=== PATIENT | male | born 1960 | race Caucasian/White ===

== ENCOUNTER 2018-02-18 11:44 | Inpatient (IN) | payer BC ==
[2018-02-18] MEDS ORDERED: ONDANSETRON 4 MG INJ IV (13:00)
[2018-02-18] MEDS ORDERED: ACETAMINOPHEN 325 MG TAB PO (13:00)
[2018-02-18 13:44] LABS: ADD MAN DIFF? NO
[2018-02-18 13:49] LABS: BASOPHILS % 0.7 % (0.0-2.0); EOSINOPHILS # 0.3 10^3/ul (0.0-0.5); EOSINOPHILS % 5.1 % (0.0-7.0); HEMATOCRIT 31.3 % (42.0-52.0); HEMOGLOBIN 10.7 g/dl (14.0-18.0); LYMPHOCYTES # 0.9 10^3/ul (0.8-2.9); LYMPHOCYTES % 15.7 % (15.0-51.0); MEAN CORPUSCULAR HEMOGLOBIN 30.6 pg (29.0-33.0); MEAN CORPUSCULAR HGB CONC 34.2 g/dl (32.0-37.0); MEAN CORPUSCULAR VOLUME 89.4 fl (82.0-101.0); MEAN PLATELET VOLUME 11.2 fl (7.4-10.4); MONOCYTE # 0.4 10^3/ul (0.3-0.9); MONOCYTES % 6.3 % (0.0-11.0); NEUTROPHIL # 4.1 10^3/ul (1.6-7.5); NEUTROPHILS % 71.9 % (39.0-77.0); PLATELET COUNT 163 10^3/UL (140-415); RED CELL DISTRIBUTION WIDTH 13.2 % (11.5-14.5)
[2018-02-18 13:49] LABS: WHITE BLOOD COUNT 5.7 10^3/ul (4.8-10.8)
[2018-02-18 14:07] LABS: INR 1.06; PROTIME 13.9 Sec (11.9-14.9); PT RATIO 1.1
[2018-02-18 14:08] LABS: PARTIAL THROMBOPLASTIN TIME 33.4 Sec (25.0-35.0)
[2018-02-18 14:19] LABS: ANION GAP 18 (8-16); BLOOD UREA NITROGEN 46 mg/dl (7-20); CARBON DIOXIDE 21 mmol/L (21-31); CHLORIDE 110 mmol/L (97-110); CREATININE 4.82 mg/dl (0.61-1.24); GLUCOSE 317 mg/dl (70-220); SODIUM 144 mmol/L (135-144)
[2018-02-18 14:29] LABS: TROPONIN-I < 0.010 ng/ml (0.000-0.120)
[2018-02-18] MEDS ORDERED: HEPARIN 1000 UNITS/ML 10 ML INJ (15:55)
[2018-02-18] MEDS ORDERED: LIDOCAINE 1% (MDV) 20 ML INJ (15:55)
[2018-02-18] MEDS ORDERED: FENTAnyl 50 MCG/ML VIAL (15:55)
[2018-02-18] MEDS ORDERED: HEPARIN 1000 UNITS/NS (A-LINE) 1,000 ML (15:55)
[2018-02-18] MEDS ORDERED: MIDAZOLAM 1 MG/ML 2 ML INJ (15:55)
[2018-02-18] MEDS ORDERED: ALBUMIN HUMAN 25% 100 ML IV (16:30)
[2018-02-18] MEDS ORDERED: SODIUM CHLORIDE 0.9% 1L BAG IV (16:30)
[2018-02-18] MEDS ORDERED: CEFAZOLIN 1 GM/50 ML (PMX) 50 ML IVPB (16:36)
[2018-02-18] MEDS ORDERED: DEXTROSE 50% 50 ML SYRINGE IV ×2 (18:30)
[2018-02-18] MEDS ORDERED: ALBUTEROL HFA 8 GM INHALER INH (18:30)
[2018-02-18] MEDS ORDERED: GLUCOSE GEL 15 GRAM TUBE BUCCAL (18:30)
[2018-02-18] MEDS ORDERED: GLUCAGON 1 MG INJ IM (18:30)
[2018-02-18] MEDS ORDERED: GLUCOSE GEL 15 GRAM TUBE PO ×2 (18:30)
[2018-02-18 19:32] LABS: HEPATITIS B SURFACE ANTIGEN NEGATIVE (NEGATIVE)
[2018-02-18] MEDS: FAMOTIDINE 20 MG TAB PO (21:00)
[2018-02-18] MEDS: DOCUSATE SODIUM 100 MG CAP PO (21:00)
[2018-02-18] MEDS: CLOPIDOGREL 75 MG TAB PO (21:00)
[2018-02-18] MEDS: INSULIN ASPART [NOVOLOG] 3 ML PEN SC (21:07)
[2018-02-19 01:23] LABS: CREATINE KINASE 199 IU/L (23-200)
[2018-02-19 01:35] LABS: CK INDEX 0.9; CK-MB 1.79 ng/ml (0.0-2.4); TROPONIN-I < 0.012 ng/ml (0.000-0.120)
[2018-02-19] MEDS: ACCU-CHEK XX (01:43)
[2018-02-19] MEDS: ONDANSETRON 4 MG INJ IV ×2 (01:46→09:57)
[2018-02-19] MEDS: HEPARIN 1000 UNITS/ML 10 ML INJ CATHETER (05:06)
[2018-02-19 05:51] LABS: ADD MAN DIFF? NO; HAAIG REFLEX REFLEX FILED
[2018-02-19 05:55] LABS: BASOPHIL # 0.1 10^3/ul (0.0-0.1); BASOPHILS % 0.7 % (0.0-2.0); EOSINOPHILS # 0.2 10^3/ul (0.0-0.5); EOSINOPHILS % 2.8 % (0.0-7.0); HEMATOCRIT 30.9 % (42.0-52.0); HEMOGLOBIN 10.6 g/dl (14.0-18.0); LYMPHOCYTES # 0.9 10^3/ul (0.8-2.9); LYMPHOCYTES % 12.8 % (15.0-51.0); MEAN CORPUSCULAR HEMOGLOBIN 30.2 pg (29.0-33.0); MEAN CORPUSCULAR HGB CONC 34.3 g/dl (32.0-37.0); MEAN PLATELET VOLUME 11.6 fl (7.4-10.4); MONOCYTE # 0.2 10^3/ul (0.3-0.9); MONOCYTES % 3.1 % (0.0-11.0); NEUTROPHIL # 5.6 10^3/ul (1.6-7.5); PLATELET COUNT 148 10^3/UL (140-415); RED BLOOD COUNT 3.51 10^6/ul (4.70-6.10); RED CELL DISTRIBUTION WIDTH 13.1 % (11.5-14.5)
[2018-02-19 06:12] LABS: CHOL/HDL RATIO 3.5 RATIO; CREATINE KINASE 194 IU/L (23-200); HDL CHOLESTEROL 44 mg/dl (28-71); LDL CHOLESTEROL,CALCULATED 59 mg/dl; TRIGLYCERIDES 265 mg/dl (0-149)
[2018-02-19 06:12] LABS: CHOLESTEROL 156 mg/dl (100-200)
[2018-02-19 06:24] LABS: CK INDEX 0.7; TROPONIN-I 0.016 ng/ml (0.000-0.120)
[2018-02-19 06:39] LABS: MAGNESIUM 2.1 mg/dl (1.7-2.5)
[2018-02-19] MEDS: DOCUSATE SODIUM 100 MG CAP PO (06:47)
[2018-02-19] MEDS: FERROUS SULFATE (EC) 325 MG TAB PO ×2 (06:47→15:00)
[2018-02-19] MEDS: POTASSIUM CHLORIDE (SR) 20 MEQ TAB PO (06:49)
[2018-02-19] MEDS: TAMSULOSIN (SR) 0.4 MG CAP PO ×3 (06:49→15:00)
[2018-02-19] MEDS: ASPIRIN (EC) 81 MG TAB PO ×2 (06:49→15:00)
[2018-02-19] MEDS: PAROXETINE 10 MG TAB PO ×2 (06:50→15:00)
[2018-02-19] MEDS: GABAPENTIN 300 MG CAP PO ×2 (06:50→15:00)
[2018-02-19] MEDS: CLOPIDOGREL 75 MG TAB PO ×2 (06:50→15:00)
[2018-02-19 06:54] LABS: HEPATITIS B SURFACE ANTIGEN NEGATIVE (NEGATIVE)
[2018-02-19] MEDS: INSULIN ASPART [NOVOLOG] 3 ML PEN SC ×5 (07:01→20:30)
[2018-02-19 07:11] LABS: HEPATITIS B CORE ANTIBODY NEGATIVE (NEGATIVE); HEPATITIS C VIRAL ANTIBODY NEGATIVE (NEGATIVE); HIV 1&2 ANTIBODY NEGATIVE (NEGATIVE)
[2018-02-19] MEDS: LOSARTAN 50 MG TAB PO ×2 (08:20→09:00)
[2018-02-19 08:28] LABS: HEMOGLOBIN A1C 6.8 % (0-5.9)
[2018-02-19] MEDS: hydrALAzine 20 MG INJ IV (08:29)
[2018-02-19 09:46] LABS: ANION GAP 10 (8-16); BLOOD UREA NITROGEN 27 mg/dl (7-20); CARBON DIOXIDE 27 mmol/L (21-31); CHLORIDE 106 mmol/L (97-110); GLUCOSE 153 mg/dl (70-220); POTASSIUM 4.2 mmol/L (3.5-5.1); SODIUM 139 mmol/L (135-144)
[2018-02-19 13:01] LABS: CREATINE KINASE 162 IU/L (23-200)
[2018-02-19 13:15] LABS: CK INDEX 0.8; CK-MB 1.22 ng/ml (0.0-2.4); TROPONIN-I < 0.012 ng/ml (0.000-0.120)
[2018-02-19] MEDS: ONDANSETRON 4 MG TAB PO (14:43)
[2018-02-19] MEDS: PROPYLENE GLYCOL/PEG 15 ML OPH BOTH EYES (17:26)
[2018-02-20] MEDS: HEPARIN 1000 UNITS/ML 10 ML INJ CATHETER ×2 (00:31→20:19)
[2018-02-20] MEDS: PROPYLENE GLYCOL/PEG 15 ML OPH BOTH EYES ×5 (00:43→21:07)
[2018-02-20] MEDS: DOCUSATE SODIUM 100 MG CAP PO ×3 (00:43→21:06)
[2018-02-20] MEDS: FAMOTIDINE 20 MG TAB PO ×2 (00:44→21:07)
[2018-02-20] MEDS: ISOSORBIDE DINITRATE 10 MG TAB PO ×4 (00:44→21:06)
[2018-02-20] MEDS: LOSARTAN 50 MG TAB PO ×3 (00:44→21:06)
[2018-02-20] MEDS: METOPROLOL 25 MG TAB PO ×3 (00:45→21:07)
[2018-02-20] MEDS: ACCU-CHEK XX (02:00)
[2018-02-20] MEDS: hydrALAzine 20 MG INJ IV (04:47)
[2018-02-20] MEDS: ONDANSETRON 4 MG INJ IV ×2 (05:12→11:12)
[2018-02-20 06:37] LABS: ADD MAN DIFF? NO
[2018-02-20 06:46] LABS: WHITE BLOOD COUNT 6.7 10^3/ul (4.8-10.8)
[2018-02-20 06:46] LABS: BASOPHIL # 0.1 10^3/ul (0.0-0.1); EOSINOPHILS # 0.3 10^3/ul (0.0-0.5); EOSINOPHILS % 4.2 % (0.0-7.0); HEMATOCRIT 31.8 % (42.0-52.0); HEMOGLOBIN 10.8 g/dl (14.0-18.0); LYMPHOCYTES # 1.4 10^3/ul (0.8-2.9); LYMPHOCYTES % 20.3 % (15.0-51.0); MEAN CORPUSCULAR HEMOGLOBIN 29.8 pg (29.0-33.0); MEAN CORPUSCULAR VOLUME 87.6 fl (82.0-101.0); MEAN PLATELET VOLUME 11.6 fl (7.4-10.4); MONOCYTE # 0.6 10^3/ul (0.3-0.9); MONOCYTES % 8.5 % (0.0-11.0); NEUTROPHIL # 4.4 10^3/ul (1.6-7.5); NEUTROPHILS % 65.6 % (39.0-77.0); PLATELET COUNT 169 10^3/UL (140-415); RED BLOOD COUNT 3.63 10^6/ul (4.70-6.10); RED CELL DISTRIBUTION WIDTH 13.2 % (11.5-14.5)
[2018-02-20 07:11] LABS: ANION GAP 14 (8-16); BLOOD UREA NITROGEN 19 mg/dl (7-20); CALCIUM 9.4 mg/dl (8.4-10.2); CARBON DIOXIDE 27 mmol/L (21-31); CHLORIDE 103 mmol/L (97-110); CREATININE 2.94 mg/dl (0.61-1.24); GLUCOSE 189 mg/dl (70-220); POTASSIUM 4.5 mmol/L (3.5-5.1); SODIUM 139 mmol/L (135-144)
[2018-02-20] MEDS: INSULIN ASPART [NOVOLOG] 3 ML PEN SC ×5 (07:55→21:00)
[2018-02-20] MEDS: FERROUS SULFATE (EC) 325 MG TAB PO (09:01)
[2018-02-20] MEDS: ASPIRIN (EC) 81 MG TAB PO (09:01)
[2018-02-20] MEDS: GABAPENTIN 300 MG CAP PO (09:01)
[2018-02-20] MEDS: CLOPIDOGREL 75 MG TAB PO (09:02)
[2018-02-20] MEDS: TAMSULOSIN (SR) 0.4 MG CAP PO (09:02)
[2018-02-20] MEDS: POTASSIUM CHLORIDE (SR) 20 MEQ TAB PO (09:02)
[2018-02-20] MEDS: PAROXETINE 10 MG TAB PO (09:02)
[2018-02-20] MEDS: LEVETIRACETAM 500 MG TAB PO ×2 (13:21→21:07)
[2018-02-21] MEDS: ACCU-CHEK XX (02:00)
[2018-02-21] MEDS: traMADol 50 MG TAB PO (05:59)
[2018-02-21 06:16] LABS: ADD MAN DIFF? NO
[2018-02-21 06:25] LABS: BASOPHIL # 0.1 10^3/ul (0.0-0.1); BASOPHILS % 0.9 % (0.0-2.0); EOSINOPHILS # 0.3 10^3/ul (0.0-0.5); EOSINOPHILS % 4.8 % (0.0-7.0); HEMATOCRIT 31.8 % (42.0-52.0); HEMOGLOBIN 10.5 g/dl (14.0-18.0); LYMPHOCYTES # 1.6 10^3/ul (0.8-2.9); LYMPHOCYTES % 28.8 % (15.0-51.0); MEAN CORPUSCULAR HEMOGLOBIN 29.7 pg (29.0-33.0); MEAN CORPUSCULAR VOLUME 90.1 fl (82.0-101.0); MEAN PLATELET VOLUME 11.1 fl (7.4-10.4); MONOCYTE # 0.6 10^3/ul (0.3-0.9); MONOCYTES % 10.1 % (0.0-11.0); NEUTROPHIL # 3.1 10^3/ul (1.6-7.5); PLATELET COUNT 146 10^3/UL (140-415); RED BLOOD COUNT 3.53 10^6/ul (4.70-6.10); RED CELL DISTRIBUTION WIDTH 13.1 % (11.5-14.5)
[2018-02-21 06:25] LABS: WHITE BLOOD COUNT 5.6 10^3/ul (4.8-10.8)
[2018-02-21 06:44] LABS: ANION GAP 13 (8-16); BLOOD UREA NITROGEN 17 mg/dl (7-20); CALCIUM 9.5 mg/dl (8.4-10.2); CARBON DIOXIDE 30 mmol/L (21-31); CHLORIDE 102 mmol/L (97-110); CREATININE 3.03 mg/dl (0.61-1.24); GLUCOSE 165 mg/dl (70-220); POTASSIUM 4.1 mmol/L (3.5-5.1); SODIUM 141 mmol/L (135-144)
[2018-02-21] MEDS: INSULIN ASPART [NOVOLOG] 3 ML PEN SC ×4 (07:49→21:00)
[2018-02-21] MEDS: GABAPENTIN 300 MG CAP PO (08:53)
[2018-02-21] MEDS: ISOSORBIDE DINITRATE 10 MG TAB PO ×3 (08:53→21:47)
[2018-02-21] MEDS: LEVETIRACETAM 500 MG TAB PO ×2 (08:53→21:47)
[2018-02-21] MEDS: ASPIRIN (EC) 81 MG TAB PO (08:53)
[2018-02-21] MEDS: DOCUSATE SODIUM 100 MG CAP PO ×2 (08:53→21:48)
[2018-02-21] MEDS: POTASSIUM CHLORIDE (SR) 20 MEQ TAB PO (08:53)
[2018-02-21] MEDS: FERROUS SULFATE (EC) 325 MG TAB PO (08:53)
[2018-02-21] MEDS: PAROXETINE 10 MG TAB PO (08:53)
[2018-02-21] MEDS: METOPROLOL 25 MG TAB PO ×2 (08:54→21:47)
[2018-02-21] MEDS: TAMSULOSIN (SR) 0.4 MG CAP PO (08:54)
[2018-02-21] MEDS: CLOPIDOGREL 75 MG TAB PO (08:54)
[2018-02-21] MEDS: LOSARTAN 50 MG TAB PO ×2 (08:54→21:47)
[2018-02-21] MEDS: PROPYLENE GLYCOL/PEG 15 ML OPH BOTH EYES ×4 (08:58→21:48)
[2018-02-21] MEDS: FAMOTIDINE 20 MG TAB PO (21:47)
[2018-02-22] MEDS: ACCU-CHEK XX (02:00)
[2018-02-22 05:46] LABS: ADD MAN DIFF? NO
[2018-02-22 05:50] LABS: BASOPHIL # 0.1 10^3/ul (0.0-0.1); BASOPHILS % 0.9 % (0.0-2.0); EOSINOPHILS # 0.4 10^3/ul (0.0-0.5); EOSINOPHILS % 5.7 % (0.0-7.0); HEMATOCRIT 32.1 % (42.0-52.0); HEMOGLOBIN 10.8 g/dl (14.0-18.0); LYMPHOCYTES # 1.3 10^3/ul (0.8-2.9); LYMPHOCYTES % 18.7 % (15.0-51.0); MEAN CORPUSCULAR HEMOGLOBIN 30.2 pg (29.0-33.0); MEAN CORPUSCULAR HGB CONC 33.6 g/dl (32.0-37.0); MEAN CORPUSCULAR VOLUME 89.7 fl (82.0-101.0); MONOCYTE # 0.6 10^3/ul (0.3-0.9); MONOCYTES % 8.5 % (0.0-11.0); NEUTROPHIL # 4.5 10^3/ul (1.6-7.5); NEUTROPHILS % 65.9 % (39.0-77.0); PLATELET COUNT 147 10^3/UL (140-415); RED BLOOD COUNT 3.58 10^6/ul (4.70-6.10); RED CELL DISTRIBUTION WIDTH 12.7 % (11.5-14.5)
[2018-02-22 05:50] LABS: WHITE BLOOD COUNT 6.8 10^3/ul (4.8-10.8)
[2018-02-22 06:44] LABS: ANION GAP 13 (8-16); BLOOD UREA NITROGEN 35 mg/dl (7-20); CALCIUM 9.2 mg/dl (8.4-10.2); CARBON DIOXIDE 27 mmol/L (21-31); CHLORIDE 103 mmol/L (97-110); CREATININE 4.46 mg/dl (0.61-1.24); GLUCOSE 220 mg/dl (70-220); POTASSIUM 4.4 mmol/L (3.5-5.1); SODIUM 139 mmol/L (135-144)
[2018-02-22] MEDS: ASPIRIN (EC) 81 MG TAB PO (08:09)
[2018-02-22] MEDS: DOCUSATE SODIUM 100 MG CAP PO ×2 (08:09→20:55)
[2018-02-22] MEDS: CLOPIDOGREL 75 MG TAB PO (08:10)
[2018-02-22] MEDS: TAMSULOSIN (SR) 0.4 MG CAP PO (08:10)
[2018-02-22] MEDS: LEVETIRACETAM 500 MG TAB PO ×2 (08:10→20:55)
[2018-02-22] MEDS: FERROUS SULFATE (EC) 325 MG TAB PO (08:10)
[2018-02-22] MEDS: METOPROLOL 25 MG TAB PO ×2 (08:10→20:57)
[2018-02-22] MEDS: PAROXETINE 10 MG TAB PO (08:10)
[2018-02-22] MEDS: POTASSIUM CHLORIDE (SR) 20 MEQ TAB PO (08:10)
[2018-02-22] MEDS: ISOSORBIDE DINITRATE 10 MG TAB PO ×3 (08:11→20:56)
[2018-02-22] MEDS: LOSARTAN 50 MG TAB PO ×2 (08:11→20:56)
[2018-02-22] MEDS: PROPYLENE GLYCOL/PEG 15 ML OPH BOTH EYES ×4 (08:11→20:44)
[2018-02-22] MEDS: GABAPENTIN 300 MG CAP PO (08:11)
[2018-02-22] MEDS: INSULIN ASPART [NOVOLOG] 3 ML PEN SC ×4 (08:33→20:53)
[2018-02-22] MEDS: HEPARIN 1000 UNITS/ML 10 ML INJ CATHETER (15:30)
[2018-02-22] MEDS: FAMOTIDINE 20 MG TAB PO (20:55)
[2018-02-23] MEDS: ACCU-CHEK XX (02:00)
[2018-02-23] MEDS ORDERED: ACCU-CHEK XX (02:00)
[2018-02-23] MEDS: hydrALAzine 20 MG INJ IV (04:26)
[2018-02-23] MEDS: ONDANSETRON 4 MG INJ IV (05:12)
[2018-02-23] MEDS: INSULIN ASPART [NOVOLOG] 3 ML PEN SC ×2 (07:45→11:55)
[2018-02-23] MEDS: PROPYLENE GLYCOL/PEG 15 ML OPH BOTH EYES ×2 (08:42→11:56)
[2018-02-23] MEDS: POTASSIUM CHLORIDE (SR) 20 MEQ TAB PO (09:00)
[2018-02-23] MEDS: PAROXETINE 10 MG TAB PO (09:00)
[2018-02-23] MEDS: LOSARTAN 50 MG TAB PO (09:00)
[2018-02-23] MEDS: METOPROLOL 25 MG TAB PO (09:00)
[2018-02-23] MEDS: TAMSULOSIN (SR) 0.4 MG CAP PO (09:00)
[2018-02-23] MEDS: LINAGLIPTIN 5 MG TABLET PO (09:00)
[2018-02-23] MEDS: FERROUS SULFATE (EC) 325 MG TAB PO (09:00)
[2018-02-23] MEDS: ISOSORBIDE DINITRATE 10 MG TAB PO ×2 (09:00→11:31)
[2018-02-23] MEDS: GABAPENTIN 300 MG CAP PO (09:00)
[2018-02-23] MEDS: DOCUSATE SODIUM 100 MG CAP PO (09:00)
[2018-02-23 10:51] LABS: ADD MAN DIFF? NO
[2018-02-23 10:55] LABS: BASOPHIL # 0.1 10^3/ul (0.0-0.1); BASOPHILS % 0.9 % (0.0-2.0); EOSINOPHILS # 0.3 10^3/ul (0.0-0.5); EOSINOPHILS % 3.9 % (0.0-7.0); HEMATOCRIT 36.4 % (42.0-52.0); HEMOGLOBIN 12.2 g/dl (14.0-18.0); LYMPHOCYTES # 1.5 10^3/ul (0.8-2.9); LYMPHOCYTES % 17.6 % (15.0-51.0); MEAN CORPUSCULAR HEMOGLOBIN 29.6 pg (29.0-33.0); MEAN CORPUSCULAR HGB CONC 33.5 g/dl (32.0-37.0); MEAN CORPUSCULAR VOLUME 88.3 fl (82.0-101.0); MEAN PLATELET VOLUME 11.6 fl (7.4-10.4); MONOCYTE # 0.6 10^3/ul (0.3-0.9); MONOCYTES % 6.9 % (0.0-11.0); NEUTROPHILS % 70.3 % (39.0-77.0); PLATELET COUNT 180 10^3/UL (140-415); RED BLOOD COUNT 4.12 10^6/ul (4.70-6.10)
[2018-02-23 10:55] LABS: WHITE BLOOD COUNT 8.5 10^3/ul (4.8-10.8)
[2018-02-23] MEDS: CLOPIDOGREL 75 MG TAB PO (11:05)
[2018-02-23] MEDS: LEVETIRACETAM 500 MG TAB PO (11:05)
[2018-02-23] MEDS: ASPIRIN (EC) 81 MG TAB PO (11:05)
[2018-02-23 11:31] LABS: ANION GAP 19 (8-16); BLOOD UREA NITROGEN 34 mg/dl (7-20); CALCIUM 9.8 mg/dl (8.4-10.2); CARBON DIOXIDE 25 mmol/L (21-31); CHLORIDE 100 mmol/L (97-110); GLUCOSE 202 mg/dl (70-220); POTASSIUM 4.5 mmol/L (3.5-5.1); SODIUM 139 mmol/L (135-144)
[2018-02-24] MEDS ORDERED: ERGOCALCIFEROL 50,000 UNIT CAP PO (09:00)
== END 2018-02-23 15:44 | disposition home or self-care (01) | DRG 673 ==
LOC: E/R 11:44 → TEL 02-19 16:31 → MS3 12:43
PROVIDERS: Internal Medicine
PROC: 0JH63XZ Insertion of Tunneled Vascular Access Device into Chest Subcutaneous Tissue and Fascia, Percutaneous Approach (ICD-10-PCS; principal; 2018-02-18 15:30)
PROC: 02HV33Z Insertion of Infusion Device into Superior Vena Cava, Percutaneous Approach (ICD-10-PCS; 2018-02-18 15:30)
PROC: B518YZA Fluoroscopy of Superior Vena Cava using Other Contrast, Guidance (ICD-10-PCS; 2018-02-18 15:30)
PROC: 5A1D70Z Performance of Urinary Filtration, Intermittent, Less than 6 Hours Per Day (ICD-10-PCS; 2018-02-18 15:32)
DX: I12.0 Hypertensive chronic kidney disease with stage 5 chronic kidney disease or end stage renal disease (principal); N18.6 End stage renal disease; N17.9 Acute kidney failure, unspecified; I69.354 Hemiplegia and hemiparesis following cerebral infarction affecting left non-dominant side; D63.1 Anemia in chronic kidney disease; E11.22 Type 2 diabetes mellitus with diabetic chronic kidney disease; E11.21 Type 2 diabetes mellitus with diabetic nephropathy; E87.70 Fluid overload, unspecified; E78.5 Hyperlipidemia, unspecified; F32.9 Major depressive disorder, single episode, unspecified; G40.909 Epilepsy, unspecified, not intractable, without status epilepticus; I25.10 Atherosclerotic heart disease of native coronary artery without angina pectoris; J44.9 Chronic obstructive pulmonary disease, unspecified; R60.0 Localized edema; R07.9 Chest pain, unspecified; R94.31 Abnormal electrocardiogram [ECG] [EKG]; Z95.1 Presence of aortocoronary bypass graft; Z99.2 Dependence on renal dialysis; Z79.84 Long term (current) use of oral hypoglycemic drugs; Z79.02 Long term (current) use of antithrombotics/antiplatelets; Z79.82 Long term (current) use of aspirin
CPT/HCPCS: 36415; 71045; 80048; 80061; 82550; 82553; 82962; 83036; 83735; 84443; 84484; 85025; 85610; 85730; 86703; 86704; 86709; 86803; 87340; 90935; 93005; 93306; 93923; 93970; 97110; 97116; 97161; 97530; 99285-25

== ENCOUNTER 2018-05-08 17:16 | Emergency (ER) | payer BC ==
[2018-05-08 20:30] LABS: ADD MAN DIFF? NO
[2018-05-08 20:34] LABS: WHITE BLOOD COUNT 7.6 10^3/ul (4.8-10.8)
[2018-05-08 20:34] LABS: BASOPHIL # 0.1 10^3/ul (0.0-0.1); BASOPHILS % 0.7 % (0.0-2.0); EOSINOPHILS # 0.3 10^3/ul (0.0-0.5); EOSINOPHILS % 3.8 % (0.0-7.0); HEMATOCRIT 39.6 % (42.0-52.0); HEMOGLOBIN 13.4 g/dl (14.0-18.0); LYMPHOCYTES # 1.2 10^3/ul (0.8-2.9); LYMPHOCYTES % 15.3 % (15.0-51.0); MEAN CORPUSCULAR HGB CONC 33.8 g/dl (32.0-37.0); MEAN CORPUSCULAR VOLUME 91.7 fl (82.0-101.0); MEAN PLATELET VOLUME 11.9 fl (7.4-10.4); MONOCYTE # 0.6 10^3/ul (0.3-0.9); MONOCYTES % 7.5 % (0.0-11.0); NEUTROPHIL # 5.5 10^3/ul (1.6-7.5); NEUTROPHILS % 72.2 % (39.0-77.0); PLATELET COUNT 153 10^3/UL (140-415); RED BLOOD COUNT 4.32 10^6/ul (4.70-6.10); RED CELL DISTRIBUTION WIDTH 14.1 % (11.5-14.5)
[2018-05-08 20:51] LABS: ANION GAP 9 (5-13); BLOOD UREA NITROGEN 50 mg/dl (7-20); CALCIUM 9.7 mg/dl (8.4-10.2); CARBON DIOXIDE 22 mmol/L (21-31); CHLORIDE 109 mmol/L (97-110); Estimated GFR 13 mL/min (>60); GLUCOSE 82 mg/dl (70-220); POTASSIUM 4.1 mmol/L (3.5-5.1); SODIUM 140 mmol/L (135-144)
== END 2018-05-08 23:24 | disposition home or self-care (01) ==
LOC: E/R 17:16
DX: I12.0 Hypertensive chronic kidney disease with stage 5 chronic kidney disease or end stage renal disease (principal); R40.2252 Coma scale, best verbal response, oriented, at arrival to emergency department; R40.2362 Coma scale, best motor response, obeys commands, at arrival to emergency department; R40.2142 Coma scale, eyes open, spontaneous, at arrival to emergency department; N18.6 End stage renal disease; I25.10 Atherosclerotic heart disease of native coronary artery without angina pectoris; I25.2 Old myocardial infarction; E11.22 Type 2 diabetes mellitus with diabetic chronic kidney disease; Z95.1 Presence of aortocoronary bypass graft; Z79.82 Long term (current) use of aspirin; Z79.01 Long term (current) use of anticoagulants; Z79.84 Long term (current) use of oral hypoglycemic drugs
CPT/HCPCS: 71045; 80048; 82962; 84484; 85025; 93005; 99285-25

== ENCOUNTER 2018-12-17 10:08 | Inpatient (IN) | payer MEDICARE, OTHER ==
[2018-12-17] MEDS: OLANZAPINE 10 MG VIAL IM (10:39)
[2018-12-17 11:07] LABS: WHITE BLOOD COUNT 9.1 10^3/ul (4.8-10.8)
[2018-12-17 11:07] LABS: ABNORMAL IP MESSAGE 1; HEMATOCRIT 20.8 % (42.0-52.0); MEAN CORPUSCULAR HEMOGLOBIN 31.5 pg (29.0-33.0); MEAN CORPUSCULAR HGB CONC 30.8 g/dl (32.0-37.0); MEAN CORPUSCULAR VOLUME 102.5 fl (82.0-101.0); MEAN PLATELET VOLUME 10.4 fl (7.4-10.4); PLATELET COUNT 226 10^3/UL (140-415); POSITIVE DIFF @See below; RED BLOOD COUNT 2.03 10^6/ul (4.70-6.10)
[2018-12-17 11:18] LABS: ADD MAN DIFF? YES; HEMOGLOBIN 6.4 g/dl (14.0-18.0)
[2018-12-17 11:25] LABS: ALANINE AMINOTRANSFERASE 17 IU/L (13-69); ALBUMIN 3.1 g/dl (3.3-4.9); ALBUMIN/GLOBULIN RATIO 0.88; ALKALINE PHOSPHATASE 84 IU/L (42-121); ANION GAP 10 (5-13); ASPARTATE AMINO TRANSFERASE 38 IU/L (15-46); BLOOD UREA NITROGEN 48 mg/dl (7-20); CALCIUM 8.7 mg/dl (8.4-10.2); CARBON DIOXIDE 29 mmol/L (21-31); CHLORIDE 98 mmol/L (97-110); CREATININE 7.16 mg/dl (0.61-1.24); Estimated GFR 8 mL/min (>60); GLUCOSE 88 mg/dl (70-220); POTASSIUM 3.9 mmol/L (3.5-5.1); SODIUM 137 mmol/L (135-144); TOTAL PROTEIN 6.6 g/dl (6.1-8.1)
[2018-12-17] MEDS: SOD CHLORIDE 0.9% 1,000 ML IV ×3 (11:25→18:17)
[2018-12-17 11:31] LABS: ACETAMINOPHEN < 10.0 ug/ml (10.0-30.0); ETHANOL < 10.0 mg/dl (0-0); SALICYLATE < 1.0 mg/dl (5.0-30.0)
[2018-12-17 12:01] LABS: ANISOCYTOSIS 1+ (0-0); EOSINOPHILS % (M) 5 % (0-7); ERYTHROBLAST% (NRBC) (M) 1 % (0-0); HYPOCHROMASIA 1+ (0-0); LYMPHOCYTES #M 0.6 10^3/ul (0.8-2.9); LYMPHOCYTES % (M) 7 % (15-51); MONOCYTE #M 0.2 10^3/ul (0.3-0.9); MONOCYTES % (M) 3 % (0-11); PLATELET ESTIMATE NORMAL; POIKILOCYTOSIS 1+ (0-0); POLYCHROMASIA 1+ (0-0); REACTIVE LYMPHOCYTES #M 0.1 10^3/ul (0.0-0.0); REACTIVE LYMPHOCYTES% (M) 2 % (0-0); SEGMENTED NEUTROPHILS (M) % 83 % (39-77); SPHEROCYTES 1+ (0-0); TARGET CELLS 1+ (0-0)
[2018-12-17] MEDS ORDERED: ACETAMINOPHEN 325 MG TAB PO (13:30)
[2018-12-17] MEDS ORDERED: ONDANSETRON 4 MG INJ IV (13:30)
[2018-12-17] MEDS ORDERED: OLANZAPINE 10 MG VIAL IM (13:30)
[2018-12-17] MEDS ORDERED: NACL 0.9% 3 ML SYG IV (13:30)
[2018-12-17 13:51] LABS: HEMATOCRIT 20.7 % (42.0-52.0)
[2018-12-17 13:54] LABS: RETICULOCYTE RBC 2.05
[2018-12-17 13:54] LABS: RETICULOCYTE COUNT # 0.079 X10^6 (0.020-0.110); RETICULOCYTE COUNT % 3.8 % (0.5-1.5)
[2018-12-17 13:57] LABS: HEMOGLOBIN 6.5 g/dl (14.0-18.0)
[2018-12-17] MEDS ORDERED: PIPER-TAZO 3.375 GM IV (PMX) 100 ML IVPB (14:00)
[2018-12-17 14:17] LABS: IRON 38 ug/dl (35-150)
[2018-12-17] MEDS ORDERED: DEXTROSE 50% 50 ML SYRINGE IV (14:30)
[2018-12-17] MEDS ORDERED: GLUCAGON 1 MG INJ IM (14:30)
[2018-12-17] MEDS ORDERED: GLUCOSE GEL 15 GRAM TUBE PO ×2 (14:30)
[2018-12-17] MEDS ORDERED: GLUCOSE GEL 15 GRAM TUBE BUCCAL (14:30)
[2018-12-17 14:40] LABS: % IRON SATURATION 22 % SAT (22-52); TOTAL IRON BINDING CAPACITY 169 ug/dl (241-421)
[2018-12-17 14:48] LABS: ADD UMIC YES; UR ASCORBIC ACID NEGATIVE (NEGATIVE); UR BILIRUBIN (Dip) NEGATIVE (NEGATIVE); UR BLOOD (Dip) NEGATIVE (NEGATIVE); UR CLARITY CLEAR (CLEAR); UR COLOR YELLOW (YELLOW); UR GLUCOSE (Dip) 2+ mg/dL (NEGATIVE); UR KETONES (Dip) NEGATIVE (NEGATIVE); UR LEUKOCYTE ESTERASE (Dip) NEGATIVE Leu/ul (NEGATIVE); UR NITRITE (Dip) NEGATIVE (NEGATIVE); UR RBC 1 /HPF (0-5); UR SPECIFIC GRAVITY (Dip) 1.014 (1.003-1.030); UR TOTAL PROTEIN (Dip) 2+ mg/dl (NEGATIVE); UR UROBILINOGEN (Dip) NEGATIVE (NEGATIVE); UR WBC 7 /HPF (0-5)
[2018-12-17 14:51] LABS: IMMEDIATE SPIN CROSSMATCH 1 2
[2018-12-17 14:58] LABS: AMPHETAMINE/METHAMPHETAMINE Negative (NEGATIVE); BARBITURATES Negative (NEGATIVE); BENZODIAZEPINES Negative (NEGATIVE); CANNABINOIDS Negative (NEGATIVE); COCAINE Negative (NEGATIVE)
[2018-12-17 15:04] LABS: OPIATES Positive (NEGATIVE)
[2018-12-17] MEDS ORDERED: NORepinephrine 8MG/250 ML (PMX 250 ML IV (15:30)
[2018-12-17] MEDS: SOD CHLORIDE 0.9% 250 ML IV* (16:20)
[2018-12-17] MEDS: LIDOCAINE 1% (MPF) 5 ML VIAL SC (16:49)
[2018-12-17] MEDS ORDERED: HEPARIN 1000 UNITS/ML 10 ML INJ CATHETER (17:00)
[2018-12-17] MEDS ORDERED: SODIUM CHLORIDE 0.9% 1L BAG IV (17:00)
[2018-12-17] MEDS: LORAZEPAM 2 MG INJ IV (17:51)
[2018-12-17] MEDS: INSULIN ASPART [NOVOLOG] 3 ML PEN SC ×2 (18:00→21:00)
[2018-12-17] MEDS: ALBUTEROL/IPRATROPIUM (NEB) 3 ML AMP HHN (18:01)
[2018-12-17] MEDS: PIPER-TAZO 2.25 GM/NS 50 ML IVPB ×2 (18:17→21:03)
[2018-12-17] MEDS ORDERED: FAMOTIDINE 20 MG INJ IV (21:00)
[2018-12-17] MEDS: PANTOPRAZOLE 40 MG INJ IV (21:03)
[2018-12-17] MEDS: LEVETIRACETAM 500 MG (PMX) 100 ML IVPB (21:03)
[2018-12-17] MEDS: SCOPOLAMINE 1.5 MG PATCH TRANSDERM (21:47)
[2018-12-17] MEDS ORDERED: NALOXONE (0.4 MG/ML) INJ (22:25)
[2018-12-17] MEDS ORDERED: NALOXONE (0.4 MG/ML) INJ IV (22:30)
[2018-12-17] MEDS: NALOXONE (0.4 MG/ML) INJ IV (22:32)
[2018-12-17 22:56] LABS: AADO2 Arterial 426.8 mmHg (7.0-24.0); Arterial Base Excess -1.6 mmol/L (-3.0-3); Arterial Blood Gas Oxygen Sat 99.2 mmHG (95.0-98.0); Arterial COHb 0.3 % (0.0-3.0); Arterial Fraction of Oxyhgb 98.6 % (93.0-99.0); Arterial HCO3 22.1 mmol/L (22.0-26.0); Arterial MetHb 0.3 % (0.0-1.5); Arterial pCO2 33.2 mmhg (35-45); MODE MASK - NRB; Site Right Brachial
[2018-12-17] MEDS: hydrALAzine 20 MG INJ IV (23:19)
[2018-12-18] MEDS: ACCU-CHEK XX (02:00)
[2018-12-18] MEDS: LABETALOL HCL 20MG INJ IV ×2 (02:23→21:58)
[2018-12-18] MEDS: HALOPERIDOL 5 MG INJ IM ×2 (02:36→17:46)
[2018-12-18 04:50] LABS: ADD MAN DIFF? NO
[2018-12-18 05:01] LABS: WHITE BLOOD COUNT 11.2 10^3/ul (4.8-10.8)
[2018-12-18 05:01] LABS: BASOPHIL # 0.1 10^3/ul (0.0-0.1); BASOPHILS % 0.6 % (0.0-2.0); EOSINOPHILS # 0.3 10^3/ul (0.0-0.5); EOSINOPHILS % 2.6 % (0.0-7.0); HEMATOCRIT 27.3 % (42.0-52.0); HEMOGLOBIN 8.6 g/dl (14.0-18.0); LYMPHOCYTES # 0.9 10^3/ul (0.8-2.9); LYMPHOCYTES % 7.6 % (15.0-51.0); MEAN CORPUSCULAR HEMOGLOBIN 30.3 pg (29.0-33.0); MEAN CORPUSCULAR HGB CONC 31.5 g/dl (32.0-37.0); MEAN CORPUSCULAR VOLUME 96.1 fl (82.0-101.0); MEAN PLATELET VOLUME 11.1 fl (7.4-10.4); MONOCYTE # 0.6 10^3/ul (0.3-0.9); MONOCYTES % 5.6 % (0.0-11.0); NEUTROPHIL # 9.3 10^3/ul (1.6-7.5); NEUTROPHILS % 82.8 % (39.0-77.0); PLATELET COUNT 257 10^3/UL (140-415); RED BLOOD COUNT 2.84 10^6/ul (4.70-6.10); RED CELL DISTRIBUTION WIDTH 17.4 % (11.5-14.5)
[2018-12-18] MEDS: PIPER-TAZO 2.25 GM/NS 50 ML IVPB ×3 (05:34→21:47)
[2018-12-18] MEDS: PANTOPRAZOLE 40 MG INJ IV ×2 (06:00→17:27)
[2018-12-18 06:07] LABS: ALANINE AMINOTRANSFERASE 19 IU/L (13-69); ALBUMIN 3.1 g/dl (3.3-4.9); ALBUMIN/GLOBULIN RATIO 0.91; ALKALINE PHOSPHATASE 78 IU/L (42-121); ANION GAP 16 (5-13); ASPARTATE AMINO TRANSFERASE 43 IU/L (15-46); BILIRUBIN,INDIRECT 0.1 mg/dl (0-1.1); BILIRUBIN,TOTAL 0.1 mg/dl (0.2-1.3); BLOOD UREA NITROGEN 50 mg/dl (7-20); CALCIUM 8.7 mg/dl (8.4-10.2); CARBON DIOXIDE 24 mmol/L (21-31); CHLORIDE 102 mmol/L (97-110); CHOL/HDL RATIO 2.9 RATIO; CHOLESTEROL 107 mg/dl (100-200); CREATININE 7.62 mg/dl (0.61-1.24); Estimated GFR 7 mL/min (>60); GLUCOSE 88 mg/dl (70-220); HDL CHOLESTEROL 36 mg/dl (28-71); LDL CHOLESTEROL,CALCULATED 47 mg/dl; MAGNESIUM 3.1 mg/dl (1.7-2.5); POTASSIUM 4.5 mmol/L (3.5-5.1); SODIUM 142 mmol/L (135-144); TOTAL PROTEIN 6.5 g/dl (6.1-8.1); TRIGLYCERIDES 118 mg/dl (0-149)
[2018-12-18] MEDS: INSULIN ASPART [NOVOLOG] 3 ML PEN SC ×4 (07:35→21:00)
[2018-12-18 08:16] LABS: HEMOGLOBIN A1C 6.1 % (0-5.9)
[2018-12-18] MEDS: hydrALAzine 20 MG INJ IV (08:26)
[2018-12-18] MEDS: LEVETIRACETAM 500 MG (PMX) 100 ML IVPB ×2 (08:36→21:06)
[2018-12-18] MEDS: LORAZEPAM 2 MG INJ IV ×4 (08:43→22:52)
[2018-12-18] MEDS: IOHEXOL 300MG/ML 150 ML BTL (10:11)
[2018-12-18] MEDS: DEXTROSE 5%-0.45% NACL 1,000 ML IV (12:51)
[2018-12-18] MEDS: HEPARIN 1000 UNITS/ML 10 ML INJ CATHETER (19:02)
[2018-12-19] MEDS: HALOPERIDOL 5 MG INJ IM (00:10)
[2018-12-19] MEDS: LABETALOL HCL 20MG INJ IV ×2 (01:02→05:39)
[2018-12-19] MEDS: ACCU-CHEK XX (02:00)
[2018-12-19 04:40] LABS: ADD MAN DIFF? NO
[2018-12-19 04:42] LABS: ABNORMAL IP MESSAGE 1; BASOPHIL # 0.1 10^3/ul (0.0-0.1); BASOPHILS % 0.4 % (0.0-2.0); EOSINOPHILS # 0.2 10^3/ul (0.0-0.5); EOSINOPHILS % 1.1 % (0.0-7.0); HEMATOCRIT 27.1 % (42.0-52.0); HEMOGLOBIN 8.7 g/dl (14.0-18.0); LYMPHOCYTES # 0.4 10^3/ul (0.8-2.9); LYMPHOCYTES % 2.7 % (15.0-51.0); MEAN CORPUSCULAR HEMOGLOBIN 30.7 pg (29.0-33.0); MEAN CORPUSCULAR HGB CONC 32.1 g/dl (32.0-37.0); MEAN CORPUSCULAR VOLUME 95.8 fl (82.0-101.0); MEAN PLATELET VOLUME 10.2 fl (7.4-10.4); MONOCYTE # 0.7 10^3/ul (0.3-0.9); NEUTROPHIL # 12.6 10^3/ul (1.6-7.5); NEUTROPHILS % 90.4 % (39.0-77.0); PLATELET COUNT 249 10^3/UL (140-415); POSITIVE DIFF @See below; RED BLOOD COUNT 2.83 10^6/ul (4.70-6.10); RED CELL DISTRIBUTION WIDTH 17.8 % (11.5-14.5)
[2018-12-19 04:42] LABS: WHITE BLOOD COUNT 13.9 10^3/ul (4.8-10.8)
[2018-12-19 05:02] LABS: ANION GAP 11 (5-13); BLOOD UREA NITROGEN 21 mg/dl (7-20); CALCIUM 8.2 mg/dl (8.4-10.2); CARBON DIOXIDE 26 mmol/L (21-31); CHLORIDE 103 mmol/L (97-110); CREATININE 4.54 mg/dl (0.61-1.24); Estimated GFR 13 mL/min (>60); GLUCOSE 96 mg/dl (70-220); MAGNESIUM 2.4 mg/dl (1.7-2.5); POTASSIUM 3.9 mmol/L (3.5-5.1); SODIUM 140 mmol/L (135-144)
[2018-12-19 05:04] LABS: INR 1.16; PROTIME 14.9 Sec (11.9-14.9); PT RATIO 1.2
[2018-12-19] MEDS: PIPER-TAZO 2.25 GM/NS 50 ML IVPB ×3 (05:31→22:36)
[2018-12-19] MEDS: PANTOPRAZOLE 40 MG INJ IV ×2 (05:31→17:18)
[2018-12-19] MEDS: LORAZEPAM 2 MG INJ IV (05:41)
[2018-12-19] MEDS: ACETAMINOPHEN 325 MG TAB PO (05:48)
[2018-12-19] MEDS: INSULIN ASPART [NOVOLOG] 3 ML PEN SC ×4 (07:35→20:54)
[2018-12-19] MEDS: DEXTROSE 5%-0.45% NACL 1,000 ML IV (08:51)
[2018-12-19] MEDS: LEVETIRACETAM 500 MG (PMX) 100 ML IVPB ×2 (08:51→20:42)
[2018-12-19] MEDS ORDERED: ACETAMINOPHEN 1000MG/100ML IV 100 ML IVPB (09:30)
[2018-12-19] MEDS: niCARdipine 50 MG in SOD CHLORIDE 0.9% 480 ML IV ×2 (09:51→14:55)
[2018-12-19 14:19] LABS: HEPATITIS B SURFACE ANTIGEN NEGATIVE (NEGATIVE)
[2018-12-19] MEDS: LOSARTAN 50 MG TAB NGT (14:59)
[2018-12-19] MEDS: DOXAZOSIN 2 MG TAB NGT (14:59)
[2018-12-19] MEDS: ACETAMINOPHEN 650MG/20.3ML CUP PEG (16:31)
[2018-12-19] MEDS: FUROSEMIDE 40 MG INJ IV (16:32)
[2018-12-19] MEDS: ATORVASTATIN 40 MG TAB NGT (20:41)
[2018-12-19] MEDS: QUETIAPINE 25 MG TAB NGT (20:41)
[2018-12-19] MEDS: GABAPENTIN 100 MG CAP PO (20:42)
[2018-12-19] MEDS: SERTRALINE 50 MG TAB NGT (20:42)
[2018-12-19] MEDS: BACLOFEN 10 MG TAB GTB (20:42)
[2018-12-20] MEDS: ACCU-CHEK XX (01:11)
[2018-12-20] MEDS: DEXTROSE 5%-0.45% NACL 1,000 ML IV (01:11)
[2018-12-20 05:41] LABS: ADD MAN DIFF? NO
[2018-12-20 05:52] LABS: WHITE BLOOD COUNT 11.1 10^3/ul (4.8-10.8)
[2018-12-20 05:52] LABS: BASOPHIL # 0.1 10^3/ul (0.0-0.1); BASOPHILS % 0.5 % (0.0-2.0); EOSINOPHILS # 0.6 10^3/ul (0.0-0.5); EOSINOPHILS % 5.8 % (0.0-7.0); HEMATOCRIT 27.6 % (42.0-52.0); HEMOGLOBIN 8.6 g/dl (14.0-18.0); LYMPHOCYTES # 0.9 10^3/ul (0.8-2.9); MEAN CORPUSCULAR HEMOGLOBIN 30.2 pg (29.0-33.0); MEAN CORPUSCULAR HGB CONC 31.2 g/dl (32.0-37.0); MEAN CORPUSCULAR VOLUME 96.8 fl (82.0-101.0); MEAN PLATELET VOLUME 10.7 fl (7.4-10.4); MONOCYTE # 0.6 10^3/ul (0.3-0.9); NEUTROPHIL # 8.9 10^3/ul (1.6-7.5); NEUTROPHILS % 80.2 % (39.0-77.0); PLATELET COUNT 232 10^3/UL (140-415); RED BLOOD COUNT 2.85 10^6/ul (4.70-6.10); RED CELL DISTRIBUTION WIDTH 17.4 % (11.5-14.5)
[2018-12-20] MEDS: PANTOPRAZOLE 40 MG INJ IV ×2 (05:52→17:46)
[2018-12-20] MEDS: PIPER-TAZO 2.25 GM/NS 50 ML IVPB ×3 (05:53→22:26)
[2018-12-20 06:06] LABS: ANION GAP 8 (5-13); BLOOD UREA NITROGEN 29 mg/dl (7-20); CALCIUM 8.3 mg/dl (8.4-10.2); CARBON DIOXIDE 25 mmol/L (21-31); CHLORIDE 105 mmol/L (97-110); CREATININE 6.24 mg/dl (0.61-1.24); Estimated GFR 9 mL/min (>60); GLUCOSE 160 mg/dl (70-220); MAGNESIUM 2.5 mg/dl (1.7-2.5); PHOSPHORUS 3.9 mg/dl (2.5-4.9); POTASSIUM 3.9 mmol/L (3.5-5.1); SODIUM 138 mmol/L (135-144)
[2018-12-20] MEDS: INSULIN ASPART [NOVOLOG] 3 ML PEN SC ×4 (06:38→20:17)
[2018-12-20] MEDS: LEVETIRACETAM 500 MG (PMX) 100 ML IVPB ×2 (08:01→20:48)
[2018-12-20] MEDS: BACLOFEN 10 MG TAB GTB ×2 (10:05→20:15)
[2018-12-20] MEDS: DOXAZOSIN 2 MG TAB NGT (10:06)
[2018-12-20] MEDS: LOSARTAN 50 MG TAB NGT (10:07)
[2018-12-20] MEDS: HEPARIN 1000 UNITS/ML 10 ML INJ CATHETER (11:24)
[2018-12-20] MEDS: QUETIAPINE 25 MG TAB NGT (20:15)
[2018-12-20] MEDS: SERTRALINE 50 MG TAB NGT (20:15)
[2018-12-20] MEDS: GABAPENTIN 100 MG CAP PO (20:16)
[2018-12-20] MEDS: ATORVASTATIN 40 MG TAB NGT (20:16)
[2018-12-20] MEDS: ALBUTEROL/IPRATROPIUM (NEB) 3 ML AMP HHN (21:23)
[2018-12-21] MEDS: LORAZEPAM 2 MG INJ IV (03:55)
[2018-12-21] MEDS: PIPER-TAZO 2.25 GM/NS 50 ML IVPB (05:59)
[2018-12-21] MEDS: PANTOPRAZOLE 40 MG INJ IV ×2 (05:59→17:58)
[2018-12-21 06:10] LABS: ADD MAN DIFF? NO
[2018-12-21 06:14] LABS: WHITE BLOOD COUNT 8.7 10^3/ul (4.8-10.8)
[2018-12-21 06:14] LABS: BASOPHILS % 0.5 % (0.0-2.0); EOSINOPHILS # 0.6 10^3/ul (0.0-0.5); EOSINOPHILS % 6.7 % (0.0-7.0); HEMATOCRIT 26.8 % (42.0-52.0); HEMOGLOBIN 8.4 g/dl (14.0-18.0); LYMPHOCYTES # 0.7 10^3/ul (0.8-2.9); LYMPHOCYTES % 7.6 % (15.0-51.0); MEAN CORPUSCULAR HEMOGLOBIN 30.3 pg (29.0-33.0); MEAN CORPUSCULAR HGB CONC 31.3 g/dl (32.0-37.0); MEAN CORPUSCULAR VOLUME 96.8 fl (82.0-101.0); MEAN PLATELET VOLUME 10.8 fl (7.4-10.4); MONOCYTE # 0.6 10^3/ul (0.3-0.9); NEUTROPHIL # 6.7 10^3/ul (1.6-7.5); NEUTROPHILS % 77.7 % (39.0-77.0); PLATELET COUNT 236 10^3/UL (140-415); RED BLOOD COUNT 2.77 10^6/ul (4.70-6.10); RED CELL DISTRIBUTION WIDTH 16.8 % (11.5-14.5)
[2018-12-21 06:58] LABS: ALBUMIN 2.8 g/dl (3.3-4.9); ANION GAP 11 (5-13); BLOOD UREA NITROGEN 18 mg/dl (7-20); CALCIUM 8.5 mg/dl (8.4-10.2); CARBON DIOXIDE 29 mmol/L (21-31); CHLORIDE 101 mmol/L (97-110); CREATININE 4.31 mg/dl (0.61-1.24); GLUCOSE 141 mg/dl (70-220); MAGNESIUM 2.3 mg/dl (1.7-2.5); PHOSPHORUS 2.8 mg/dl (2.5-4.9); POTASSIUM 3.3 mmol/L (3.5-5.1); SODIUM 141 mmol/L (135-144)
[2018-12-21] MEDS: INSULIN ASPART [NOVOLOG] 3 ML PEN SC ×4 (08:00→23:51)
[2018-12-21] MEDS: LOSARTAN 50 MG TAB NGT (09:21)
[2018-12-21] MEDS: DOXAZOSIN 2 MG TAB NGT (09:22)
[2018-12-21] MEDS: BACLOFEN 10 MG TAB GTB ×2 (09:22→20:56)
[2018-12-21] MEDS: POTASSIUM CHLORIDE 20 MEQ POWDER FOR ORAL SOLN GTB (09:23)
[2018-12-21] MEDS: LEVETIRACETAM 500 MG (PMX) 100 ML IVPB ×2 (10:37→21:00)
[2018-12-21] MEDS: LACTOBACILLUS RHAMNOSUS CAP GTB ×2 (12:35→20:56)
[2018-12-21] MEDS: ONDANSETRON 4 MG INJ IV (14:58)
[2018-12-21] MEDS: hydrALAzine 20 MG INJ IV (15:15)
[2018-12-21] MEDS: PEG/ELECTROLYTES 4L BTL PO (17:19)
[2018-12-21] MEDS: SERTRALINE 50 MG TAB NGT (20:55)
[2018-12-21] MEDS: QUETIAPINE 25 MG TAB NGT (20:56)
[2018-12-21] MEDS: GABAPENTIN 100 MG CAP PO (20:56)
[2018-12-21] MEDS: ATORVASTATIN 40 MG TAB NGT (20:56)
[2018-12-22] MEDS: ACCU-CHEK XX (02:19)
[2018-12-22] MEDS: PANTOPRAZOLE 40 MG INJ IV ×2 (05:31→18:24)
[2018-12-22] MEDS: INSULIN ASPART [NOVOLOG] 3 ML PEN SC ×3 (05:31→18:00)
[2018-12-22 05:40] LABS: ADD MAN DIFF? NO
[2018-12-22 05:44] LABS: BASOPHIL # 0.1 10^3/ul (0.0-0.1); BASOPHILS % 0.9 % (0.0-2.0); EOSINOPHILS # 0.7 10^3/ul (0.0-0.5); EOSINOPHILS % 10.5 % (0.0-7.0); HEMATOCRIT 26.4 % (42.0-52.0); HEMOGLOBIN 8.3 g/dl (14.0-18.0); LYMPHOCYTES % 14.3 % (15.0-51.0); MEAN CORPUSCULAR HEMOGLOBIN 31.3 pg (29.0-33.0); MEAN CORPUSCULAR HGB CONC 31.4 g/dl (32.0-37.0); MEAN CORPUSCULAR VOLUME 99.6 fl (82.0-101.0); MEAN PLATELET VOLUME 10.7 fl (7.4-10.4); MONOCYTE # 0.4 10^3/ul (0.3-0.9); MONOCYTES % 6.3 % (0.0-11.0); NEUTROPHIL # 4.8 10^3/ul (1.6-7.5); NEUTROPHILS % 67.7 % (39.0-77.0); PLATELET COUNT 224 10^3/UL (140-415); RED BLOOD COUNT 2.65 10^6/ul (4.70-6.10); RED CELL DISTRIBUTION WIDTH 16.4 % (11.5-14.5)
[2018-12-22 06:35] LABS: ALBUMIN 2.8 g/dl (3.3-4.9); ANION GAP 10 (5-13); BLOOD UREA NITROGEN 26 mg/dl (7-20); CALCIUM 8.8 mg/dl (8.4-10.2); CARBON DIOXIDE 29 mmol/L (21-31); CHLORIDE 103 mmol/L (97-110); GLUCOSE 106 mg/dl (70-220); MAGNESIUM 2.5 mg/dl (1.7-2.5); PHOSPHORUS 4.1 mg/dl (2.5-4.9); POTASSIUM 4.4 mmol/L (3.5-5.1); SODIUM 142 mmol/L (135-144)
[2018-12-22] MEDS: PEG/ELECTROLYTES 4L BTL PO (08:44)
[2018-12-22] MEDS: LEVETIRACETAM 500 MG (PMX) 100 ML IVPB ×2 (08:47→20:15)
[2018-12-22] MEDS: BACLOFEN 10 MG TAB GTB ×2 (08:48→20:15)
[2018-12-22] MEDS: LOSARTAN 50 MG TAB NGT (08:48)
[2018-12-22] MEDS: NIFEdipine (XL) 30 MG TAB PO (08:49)
[2018-12-22] MEDS: DOXAZOSIN 2 MG TAB NGT (08:49)
[2018-12-22] MEDS: LACTOBACILLUS RHAMNOSUS CAP GTB ×3 (09:00→20:16)
[2018-12-22] MEDS: MIDAZOLAM 1 MG/ML 2 ML INJ (15:46)
[2018-12-22] MEDS: PROPOFOL 20 ML (15:46)
[2018-12-22] MEDS: LIDOCAINE 1% (MDV) 20 ML INJ (15:46)
[2018-12-22] MEDS ORDERED: PHENYLephrine (100 MCG/ML) 10ML SYG (15:46)
[2018-12-22] MEDS ORDERED: PROPOFOL 200 MG INJ (15:46)
[2018-12-22] MEDS: EPHEDrine 25 MG/5 ML SYG (16:23)
[2018-12-22] MEDS: ATORVASTATIN 40 MG TAB NGT (20:15)
[2018-12-22] MEDS: GABAPENTIN 100 MG CAP PO (20:15)
[2018-12-22] MEDS: SERTRALINE 50 MG TAB NGT (20:15)
[2018-12-22] MEDS: QUETIAPINE 25 MG TAB NGT (20:21)
[2018-12-22] MEDS: ALBUMIN HUMAN 25% 100 ML IV (21:18)
[2018-12-22] MEDS: EPOETIN ALFA-EPBX (ESRD) 10,000 UNIT/ML VIAL SC (21:45)
[2018-12-22] MEDS: HEPARIN 1000 UNITS/ML 10 ML INJ CATHETER (22:47)
[2018-12-23] MEDS: ACCU-CHEK XX (02:00)
[2018-12-23] MEDS: INSULIN ASPART [NOVOLOG] 3 ML PEN SC ×5 (05:30→17:59)
[2018-12-23] MEDS: PANTOPRAZOLE 40 MG INJ IV (05:30)
[2018-12-23 06:19] LABS: ADD MAN DIFF? NO
[2018-12-23 06:25] LABS: WHITE BLOOD COUNT 6.6 10^3/ul (4.8-10.8)
[2018-12-23 06:25] LABS: BASOPHIL # 0.1 10^3/ul (0.0-0.1); BASOPHILS % 0.9 % (0.0-2.0); EOSINOPHILS # 0.8 10^3/ul (0.0-0.5); EOSINOPHILS % 11.6 % (0.0-7.0); HEMATOCRIT 27.4 % (42.0-52.0); HEMOGLOBIN 8.9 g/dl (14.0-18.0); LYMPHOCYTES # 1.3 10^3/ul (0.8-2.9); LYMPHOCYTES % 19.3 % (15.0-51.0); MEAN CORPUSCULAR HEMOGLOBIN 30.7 pg (29.0-33.0); MEAN CORPUSCULAR HGB CONC 32.5 g/dl (32.0-37.0); MEAN CORPUSCULAR VOLUME 94.5 fl (82.0-101.0); MEAN PLATELET VOLUME 10.6 fl (7.4-10.4); MONOCYTE # 0.5 10^3/ul (0.3-0.9); MONOCYTES % 7.4 % (0.0-11.0); NEUTROPHILS % 60.2 % (39.0-77.0); PLATELET COUNT 250 10^3/UL (140-415); RED CELL DISTRIBUTION WIDTH 16.1 % (11.5-14.5)
[2018-12-23 07:23] LABS: ALBUMIN 2.9 g/dl (3.3-4.9); ANION GAP 8 (5-13); BLOOD UREA NITROGEN 19 mg/dl (7-20); CALCIUM 8.6 mg/dl (8.4-10.2); CARBON DIOXIDE 29 mmol/L (21-31); CHLORIDE 103 mmol/L (97-110); GLUCOSE 101 mg/dl (70-220); MAGNESIUM 2.4 mg/dl (1.7-2.5); PHOSPHORUS 3.3 mg/dl (2.5-4.9); POTASSIUM 3.9 mmol/L (3.5-5.1); SODIUM 140 mmol/L (135-144)
[2018-12-23] MEDS: LEVETIRACETAM 500 MG (PMX) 100 ML IVPB (08:22)
[2018-12-23] MEDS: LACTOBACILLUS RHAMNOSUS CAP GTB ×3 (08:23→21:00)
[2018-12-23] MEDS: DOXAZOSIN 2 MG TAB NGT (08:26)
[2018-12-23] MEDS: QUETIAPINE 25 MG TAB NGT ×2 (08:26→21:00)
[2018-12-23] MEDS: NIFEdipine (XL) 30 MG TAB PO (08:27)
[2018-12-23] MEDS: BACLOFEN 10 MG TAB GTB ×2 (08:27→21:01)
[2018-12-23] MEDS: LOSARTAN 50 MG TAB NGT (08:27)
[2018-12-23] MEDS: MULTIVIT/CA CARB/B CMPLX/FA TAB GTB (11:48)
[2018-12-23] MEDS: ALBUTEROL 0.083% (NEB) 2.5 MG/3 ML AMP HHN ×2 (14:36→20:03)
[2018-12-23] MEDS: LANSOPRAZOLE 30 MG CAP GTB (17:28)
[2018-12-23] MEDS: LEVETIRACETAM (100 MG/ML) 5ML CUP GTB (21:00)
[2018-12-23] MEDS ORDERED: LEVETIRACETAM (100 MG/ML) 5ML CUP GTB (21:00)
[2018-12-23] MEDS: SERTRALINE 50 MG TAB NGT (21:01)
[2018-12-23] MEDS: ATORVASTATIN 40 MG TAB NGT (21:01)
[2018-12-23] MEDS: GABAPENTIN 100 MG CAP PO (21:01)
[2018-12-24] MEDS: ACCU-CHEK XX (00:36)
[2018-12-24] MEDS: INSULIN ASPART [NOVOLOG] 3 ML PEN SC ×4 (05:47→17:57)
[2018-12-24] MEDS: LANSOPRAZOLE 30 MG CAP GTB ×2 (05:59→17:57)
[2018-12-24 06:05] LABS: ADD MAN DIFF? NO
[2018-12-24 06:14] LABS: WHITE BLOOD COUNT 7.7 10^3/ul (4.8-10.8)
[2018-12-24 06:14] LABS: BASOPHIL # 0.1 10^3/ul (0.0-0.1); BASOPHILS % 0.8 % (0.0-2.0); EOSINOPHILS # 0.6 10^3/ul (0.0-0.5); EOSINOPHILS % 8.1 % (0.0-7.0); HEMATOCRIT 27.6 % (42.0-52.0); HEMOGLOBIN 8.9 g/dl (14.0-18.0); LYMPHOCYTES # 1.1 10^3/ul (0.8-2.9); LYMPHOCYTES % 14.8 % (15.0-51.0); MEAN CORPUSCULAR HEMOGLOBIN 30.3 pg (29.0-33.0); MEAN CORPUSCULAR HGB CONC 32.2 g/dl (32.0-37.0); MEAN CORPUSCULAR VOLUME 93.9 fl (82.0-101.0); MEAN PLATELET VOLUME 10.3 fl (7.4-10.4); MONOCYTE # 0.6 10^3/ul (0.3-0.9); MONOCYTES % 7.9 % (0.0-11.0); NEUTROPHIL # 5.1 10^3/ul (1.6-7.5); NEUTROPHILS % 66.6 % (39.0-77.0); PLATELET COUNT 250 10^3/UL (140-415); RED BLOOD COUNT 2.94 10^6/ul (4.70-6.10); RED CELL DISTRIBUTION WIDTH 15.8 % (11.5-14.5)
[2018-12-24 06:37] LABS: ALBUMIN 2.9 g/dl (3.3-4.9); ANION GAP 11 (5-13); BLOOD UREA NITROGEN 26 mg/dl (7-20); CALCIUM 8.9 mg/dl (8.4-10.2); CARBON DIOXIDE 27 mmol/L (21-31); CHLORIDE 101 mmol/L (97-110); CREATININE 6.08 mg/dl (0.61-1.24); GLUCOSE 159 mg/dl (70-220); MAGNESIUM 2.4 mg/dl (1.7-2.5); PHOSPHORUS 3.5 mg/dl (2.5-4.9); POTASSIUM 3.8 mmol/L (3.5-5.1); SODIUM 139 mmol/L (135-144)
[2018-12-24] MEDS: ALBUTEROL 0.083% (NEB) 2.5 MG/3 ML AMP HHN ×2 (08:33→15:06)
[2018-12-24] MEDS: HEPARIN 1000 UNITS/ML 10 ML INJ CATHETER (11:04)
[2018-12-24] MEDS: LEVETIRACETAM (100 MG/ML) 5ML CUP GTB ×2 (12:14→22:46)
[2018-12-24] MEDS: ASPIRIN 81 MG TAB PO (12:14)
[2018-12-24] MEDS: MULTIVIT/CA CARB/B CMPLX/FA TAB GTB (12:15)
[2018-12-24] MEDS: LACTOBACILLUS RHAMNOSUS CAP GTB ×3 (12:15→22:47)
[2018-12-24] MEDS: BACLOFEN 10 MG TAB GTB ×2 (12:15→22:49)
[2018-12-24] MEDS: NIFEdipine (XL) 30 MG TAB PO (12:16)
[2018-12-24] MEDS: LOSARTAN 50 MG TAB NGT (12:16)
[2018-12-24] MEDS: DOXAZOSIN 2 MG TAB NGT (12:16)
[2018-12-24] MEDS: QUETIAPINE 25 MG TAB NGT ×2 (12:17→22:48)
[2018-12-24] MEDS: EPOETIN ALFA-EPBX (ESRD) 10,000 UNIT/ML VIAL SC (17:49)
[2018-12-24] MEDS: GABAPENTIN 100 MG CAP PO (22:46)
[2018-12-24] MEDS: SERTRALINE 50 MG TAB NGT (22:48)
[2018-12-24] MEDS: ATORVASTATIN 40 MG TAB NGT (22:48)
[2018-12-25] MEDS: INSULIN ASPART [NOVOLOG] 3 ML PEN SC ×4 (00:55→16:45)
[2018-12-25] MEDS: LANSOPRAZOLE 30 MG CAP GTB ×2 (06:13→17:08)
[2018-12-25 06:15] LABS: ADD MAN DIFF? NO
[2018-12-25 06:17] LABS: WHITE BLOOD COUNT 6.4 10^3/ul (4.8-10.8)
[2018-12-25 06:17] LABS: BASOPHIL # 0.1 10^3/ul (0.0-0.1); BASOPHILS % 0.8 % (0.0-2.0); EOSINOPHILS # 0.4 10^3/ul (0.0-0.5); EOSINOPHILS % 6.4 % (0.0-7.0); HEMATOCRIT 28.3 % (42.0-52.0); HEMOGLOBIN 8.9 g/dl (14.0-18.0); LYMPHOCYTES # 1.3 10^3/ul (0.8-2.9); LYMPHOCYTES % 20.3 % (15.0-51.0); MEAN CORPUSCULAR HEMOGLOBIN 29.7 pg (29.0-33.0); MEAN CORPUSCULAR HGB CONC 31.4 g/dl (32.0-37.0); MEAN CORPUSCULAR VOLUME 94.3 fl (82.0-101.0); MEAN PLATELET VOLUME 10.4 fl (7.4-10.4); MONOCYTE # 0.6 10^3/ul (0.3-0.9); MONOCYTES % 8.8 % (0.0-11.0); NEUTROPHIL # 3.9 10^3/ul (1.6-7.5); PLATELET COUNT 238 10^3/UL (140-415)
[2018-12-25 06:46] LABS: ALBUMIN 2.9 g/dl (3.3-4.9); ANION GAP 8 (5-13); BLOOD UREA NITROGEN 18 mg/dl (7-20); CALCIUM 8.8 mg/dl (8.4-10.2); CARBON DIOXIDE 31 mmol/L (21-31); CHLORIDE 101 mmol/L (97-110); CREATININE 4.51 mg/dl (0.61-1.24); GLUCOSE 163 mg/dl (70-220); MAGNESIUM 2.3 mg/dl (1.7-2.5); PHOSPHORUS 3.1 mg/dl (2.5-4.9); POTASSIUM 3.9 mmol/L (3.5-5.1); SODIUM 140 mmol/L (135-144)
[2018-12-25] MEDS: ALBUTEROL 0.083% (NEB) 2.5 MG/3 ML AMP HHN ×3 (07:35→20:21)
[2018-12-25] MEDS: MULTIVIT/CA CARB/B CMPLX/FA TAB GTB (08:02)
[2018-12-25] MEDS: ASPIRIN 81 MG TAB PO (08:02)
[2018-12-25] MEDS: BACLOFEN 10 MG TAB GTB ×2 (08:02→21:50)
[2018-12-25] MEDS: QUETIAPINE 25 MG TAB NGT (08:03)
[2018-12-25] MEDS: LEVETIRACETAM (100 MG/ML) 5ML CUP GTB ×2 (08:07→21:48)
[2018-12-25] MEDS: LACTOBACILLUS RHAMNOSUS CAP GTB ×3 (08:08→21:48)
[2018-12-25] MEDS: DOXAZOSIN 2 MG TAB NGT (08:08)
[2018-12-25] MEDS: LOSARTAN 50 MG TAB NGT (08:09)
[2018-12-25] MEDS: NIFEdipine (XL) 30 MG TAB PO (08:09)
[2018-12-25] MEDS: ATORVASTATIN 40 MG TAB NGT (21:48)
[2018-12-25] MEDS: GABAPENTIN 100 MG CAP PO (21:48)
[2018-12-25] MEDS: SERTRALINE 50 MG TAB NGT (21:49)
[2018-12-25] MEDS: QUETIAPINE 25 MG TAB GTB (21:50)
[2018-12-26] MEDS: LANSOPRAZOLE 30 MG CAP GTB ×2 (06:03→17:04)
[2018-12-26] MEDS: INSULIN ASPART [NOVOLOG] 3 ML PEN SC ×4 (06:06→16:58)
[2018-12-26 06:22] LABS: ADD MAN DIFF? NO
[2018-12-26 06:31] LABS: BASOPHIL # 0.1 10^3/ul (0.0-0.1); BASOPHILS % 0.6 % (0.0-2.0); EOSINOPHILS # 0.4 10^3/ul (0.0-0.5); EOSINOPHILS % 4.3 % (0.0-7.0); HEMATOCRIT 28.9 % (42.0-52.0); HEMOGLOBIN 9.3 g/dl (14.0-18.0); LYMPHOCYTES # 1.4 10^3/ul (0.8-2.9); LYMPHOCYTES % 14.3 % (15.0-51.0); MEAN CORPUSCULAR HEMOGLOBIN 30.2 pg (29.0-33.0); MEAN CORPUSCULAR HGB CONC 32.2 g/dl (32.0-37.0); MEAN CORPUSCULAR VOLUME 93.8 fl (82.0-101.0); MEAN PLATELET VOLUME 10.4 fl (7.4-10.4); MONOCYTE # 0.7 10^3/ul (0.3-0.9); MONOCYTES % 7.8 % (0.0-11.0); NEUTROPHIL # 6.7 10^3/ul (1.6-7.5); NEUTROPHILS % 70.9 % (39.0-77.0); PLATELET COUNT 231 10^3/UL (140-415); RED BLOOD COUNT 3.08 10^6/ul (4.70-6.10); RED CELL DISTRIBUTION WIDTH 16.2 % (11.5-14.5)
[2018-12-26 06:31] LABS: WHITE BLOOD COUNT 9.5 10^3/ul (4.8-10.8)
[2018-12-26 06:52] LABS: ALBUMIN 3.2 g/dl (3.3-4.9); ANION GAP 7 (5-13); BLOOD UREA NITROGEN 29 mg/dl (7-20); CALCIUM 9.2 mg/dl (8.4-10.2); CARBON DIOXIDE 32 mmol/L (21-31); CHLORIDE 100 mmol/L (97-110); CREATININE 6.06 mg/dl (0.61-1.24); GLUCOSE 214 mg/dl (70-220); MAGNESIUM 2.5 mg/dl (1.7-2.5); SODIUM 139 mmol/L (135-144)
[2018-12-26] MEDS ORDERED: ETOMIDATE 20 MG INJ (07:10)
[2018-12-26] MEDS ORDERED: SUCCINYLCHOLINE CHLORIDE 100 MG/5 ML SYG IV (07:10)
[2018-12-26] MEDS: ALBUTEROL 0.083% (NEB) 2.5 MG/3 ML AMP HHN ×3 (08:15→19:21)
[2018-12-26] MEDS: QUETIAPINE 25 MG TAB GTB ×3 (08:22→21:00)
[2018-12-26] MEDS: MULTIVIT/CA CARB/B CMPLX/FA TAB GTB (08:22)
[2018-12-26] MEDS: BACLOFEN 10 MG TAB GTB ×2 (08:23→21:00)
[2018-12-26] MEDS: LEVETIRACETAM (100 MG/ML) 5ML CUP GTB ×2 (08:23→21:00)
[2018-12-26] MEDS: LACTOBACILLUS RHAMNOSUS CAP GTB ×3 (08:23→21:00)
[2018-12-26] MEDS: ASPIRIN 81 MG TAB PO (08:23)
[2018-12-26] MEDS: CLOPIDOGREL 75 MG TAB GTB (08:23)
[2018-12-26] MEDS: LOSARTAN 50 MG TAB NGT (08:23)
[2018-12-26] MEDS: DOXAZOSIN 2 MG TAB NGT (08:24)
[2018-12-26] MEDS: NIFEdipine (XL) 30 MG TAB PO (08:24)
[2018-12-26] MEDS: ONDANSETRON 4 MG INJ IV (18:53)
[2018-12-26] MEDS: ATORVASTATIN 40 MG TAB NGT (21:00)
[2018-12-26] MEDS: GABAPENTIN 100 MG CAP PO (21:00)
[2018-12-26] MEDS: SERTRALINE 50 MG TAB NGT (21:00)
[2018-12-26 21:46] LABS: LACTIC ACID 1.7 mmol/L (0.5-2.0)
[2018-12-26 23:35] LABS: AADO2 Arterial 579.9 mmHg (7.0-24.0); Arterial Blood Gas Oxygen Sat 95.5 mmHG (95.0-98.0); Arterial COHb 0 % (0.0-3.0); Arterial Fraction of Oxyhgb 95.3 % (93.0-99.0); Arterial HCO3 27.4 mmol/L (22.0-26.0); Arterial MetHb 0.2 % (0.0-1.5); Arterial pCO2 46.3 mmhg (35-45); MODE MASK - NRB; Site LB
[2018-12-27] MEDS: SOD CHLORIDE 0.9% 1,000 ML IV ×3 (00:07→11:33)
[2018-12-27] MEDS: PROPOFOL 100 ML IV ×3 (00:07→11:39)
[2018-12-27 00:15] LABS: ADD MAN DIFF? NO
[2018-12-27 00:17] LABS: ABNORMAL IP MESSAGE 1; BASOPHILS % 0.3 % (0.0-2.0); EOSINOPHILS % 0.4 % (0.0-7.0); HEMATOCRIT 27.6 % (42.0-52.0); HEMOGLOBIN 8.6 g/dl (14.0-18.0); LYMPHOCYTES # 0.6 10^3/ul (0.8-2.9); LYMPHOCYTES % 5.9 % (15.0-51.0); MEAN CORPUSCULAR HEMOGLOBIN 29.8 pg (29.0-33.0); MEAN CORPUSCULAR HGB CONC 31.2 g/dl (32.0-37.0); MEAN CORPUSCULAR VOLUME 95.5 fl (82.0-101.0); MEAN PLATELET VOLUME 10.3 fl (7.4-10.4); MONOCYTE # 0.3 10^3/ul (0.3-0.9); MONOCYTES % 3.4 % (0.0-11.0); NEUTROPHIL # 8.3 10^3/ul (1.6-7.5); NEUTROPHILS % 89.7 % (39.0-77.0); PLATELET COUNT 234 10^3/UL (140-415); POSITIVE DIFF @See below; RED BLOOD COUNT 2.89 10^6/ul (4.70-6.10); RED CELL DISTRIBUTION WIDTH 16.4 % (11.5-14.5)
[2018-12-27 00:17] LABS: WHITE BLOOD COUNT 9.3 10^3/ul (4.8-10.8)
[2018-12-27 00:25] LABS: ADD UMIC YES; UR ASCORBIC ACID NEGATIVE (NEGATIVE); UR BACTERIA FEW /HPF (NONE SEEN); UR BILIRUBIN (Dip) NEGATIVE (NEGATIVE); UR BLOOD (Dip) NEGATIVE (NEGATIVE); UR CLARITY SLIGHTLY CLOUDY (CLEAR); UR COLOR YELLOW (YELLOW); UR GLUCOSE (Dip) 1+ mg/dL (NEGATIVE); UR KETONES (Dip) NEGATIVE (NEGATIVE); UR LEUKOCYTE ESTERASE (Dip) NEGATIVE Leu/ul (NEGATIVE); UR NITRITE (Dip) NEGATIVE (NEGATIVE); UR RBC 3 /HPF (0-5); UR SPECIFIC GRAVITY (Dip) 1.009 (1.003-1.030); UR TOTAL PROTEIN (Dip) 2+ mg/dl (NEGATIVE); UR UROBILINOGEN (Dip) NEGATIVE (NEGATIVE); UR WBC 12 /HPF (0-5)
[2018-12-27] MEDS ORDERED: PIPER-TAZO 3.375 GM IV (PMX) 100 ML IVPB (00:30)
[2018-12-27] MEDS ORDERED: VANCOMYCIN IV PER PHARMACY XX (00:30)
[2018-12-27 00:37] LABS: ALANINE AMINOTRANSFERASE 9 IU/L (13-69); ALBUMIN 2.9 g/dl (3.3-4.9); ALKALINE PHOSPHATASE 72 IU/L (42-121); ANION GAP 11 (5-13); ASPARTATE AMINO TRANSFERASE 21 IU/L (15-46); BILIRUBIN,INDIRECT 0.1 mg/dl (0-1.1); BILIRUBIN,TOTAL 0.1 mg/dl (0.2-1.3); BLOOD UREA NITROGEN 31 mg/dl (7-20); CALCIUM 8.2 mg/dl (8.4-10.2); CARBON DIOXIDE 26 mmol/L (21-31); CHLORIDE 104 mmol/L (97-110); CREATININE 6.34 mg/dl (0.61-1.24); Estimated GFR 9 mL/min (>60); GLUCOSE 159 mg/dl (70-220); POTASSIUM 4.3 mmol/L (3.5-5.1); SODIUM 141 mmol/L (135-144); TOTAL PROTEIN 6.1 g/dl (6.1-8.1)
[2018-12-27] MEDS: NORepinephrine 8MG/250 ML (PMX 250 ML IV ×2 (01:05→22:04)
[2018-12-27] MEDS: VANCOMYCIN HCL 1.5 GM in SOD CHLORIDE 0.9% 250 ML IVPB (01:12)
[2018-12-27] MEDS: PIPER-TAZO 2.25 GM/NS 50 ML IVPB ×3 (01:21→21:19)
[2018-12-27 01:30] LABS: AADO2 Arterial 471.7 mmHg (7.0-24.0); Allen Test ACCEPTAB; Arterial Base Excess 1.3 mmol/L (-3.0-3); Arterial Blood Gas Oxygen Sat 99.3 mmHG (95.0-98.0); Arterial COHb 0 % (0.0-3.0); Arterial HCO3 25.8 mmol/L (22.0-26.0); Arterial MetHb 0.3 % (0.0-1.5); Arterial pCO2 40.6 mmhg (35-45); MODE VENT - AC; Site Right Radial
[2018-12-27 05:22] LABS: WHITE BLOOD COUNT 11.6 10^3/ul (4.8-10.8)
[2018-12-27 05:22] LABS: ABNORMAL IP MESSAGE 1; HEMATOCRIT 27.5 % (42.0-52.0); HEMOGLOBIN 8.7 g/dl (14.0-18.0); MEAN CORPUSCULAR HEMOGLOBIN 29.9 pg (29.0-33.0); MEAN CORPUSCULAR HGB CONC 31.6 g/dl (32.0-37.0); MEAN CORPUSCULAR VOLUME 94.5 fl (82.0-101.0); MEAN PLATELET VOLUME 10.7 fl (7.4-10.4); PLATELET COUNT 274 10^3/UL (140-415); POSITIVE DIFF @See below; RED BLOOD COUNT 2.91 10^6/ul (4.70-6.10); RED CELL DISTRIBUTION WIDTH 17.1 % (11.5-14.5)
[2018-12-27] MEDS: INSULIN ASPART [NOVOLOG] 3 ML PEN SC ×4 (05:46→17:56)
[2018-12-27] MEDS: LANSOPRAZOLE 30 MG CAP GTB ×2 (05:47→17:12)
[2018-12-27 05:52] LABS: ADD MAN DIFF? YES
[2018-12-27 06:08] LABS: ALBUMIN 2.8 g/dl (3.3-4.9); ANION GAP 10 (5-13); BLOOD UREA NITROGEN 38 mg/dl (7-20); CALCIUM 9.1 mg/dl (8.4-10.2); CARBON DIOXIDE 29 mmol/L (21-31); CHLORIDE 101 mmol/L (97-110); CREATININE 7.26 mg/dl (0.61-1.24); GLUCOSE 186 mg/dl (70-220); MAGNESIUM 2.3 mg/dl (1.7-2.5); POTASSIUM 4.4 mmol/L (3.5-5.1); SODIUM 140 mmol/L (135-144)
[2018-12-27] MEDS: ALBUTEROL 0.083% (NEB) 2.5 MG/3 ML AMP HHN ×3 (08:00→19:45)
[2018-12-27] MEDS: ASPIRIN 81 MG TAB PO (09:00)
[2018-12-27] MEDS: CLOPIDOGREL 75 MG TAB GTB (09:00)
[2018-12-27] MEDS: BACLOFEN 10 MG TAB GTB ×2 (09:00→21:00)
[2018-12-27] MEDS: MULTIVIT/CA CARB/B CMPLX/FA TAB GTB (09:00)
[2018-12-27] MEDS: DOXAZOSIN 2 MG TAB NGT (09:00)
[2018-12-27] MEDS: LOSARTAN 50 MG TAB NGT (09:00)
[2018-12-27] MEDS: LACTOBACILLUS RHAMNOSUS CAP GTB ×3 (09:00→21:00)
[2018-12-27] MEDS: QUETIAPINE 25 MG TAB GTB ×2 (09:00→21:00)
[2018-12-27] MEDS ORDERED: niCARdipine 50 MG in SOD CHLORIDE 0.9% 480 ML IV (09:30)
[2018-12-27] MEDS: FENTAnyl (DRIP) 1000 mcg/100mL 100 ML IV (09:51)
[2018-12-27 09:53] LABS: ANISOCYTOSIS 1+ (0-0); BAND NEUTROPHILS #M 4.5 10^3/ul (0.0-0.6); BAND NEUTROPHILS % (M) 39 % (0-4); GIANT THROMBO% (M) 2 % (0-0); LYMPHOCYTES % (M) 9 % (15-51); MONOCYTE #M 0.3 10^3/ul (0.3-0.9); MONOCYTES % (M) 3 % (0-11); OVALOCYTES 1+ (0-0); PLATELET ESTIMATE NORMAL; POLYCHROMASIA 2+ (0-0); SEG NEUT #M 6.2 10^3/ul (1.6-7.5); SEGMENTED NEUTROPHILS (M) % 49 % (39-77); SMUDGE%M 4 % (0-0)
[2018-12-27] MEDS: MIDAZOLAM (DRIP) 50 mg/50 mL 50 ML IV ×2 (10:56→22:04)
[2018-12-27] MEDS: HEPARIN 1000 UNITS/ML 10 ML INJ CATHETER (11:16)
[2018-12-27] MEDS: LEVETIRACETAM 500 MG (PMX) 100 ML IVPB ×2 (11:32→21:19)
[2018-12-27] MEDS: EPOETIN ALFA-EPBX (ESRD) 10,000 UNIT/ML VIAL SC (17:53)
[2018-12-27 18:13] LABS: PROTIME 14.3 Sec (11.9-14.9); PT RATIO 1.1
[2018-12-27] MEDS: GABAPENTIN 100 MG CAP PO (21:00)
[2018-12-27] MEDS: SERTRALINE 50 MG TAB NGT (21:00)
[2018-12-27] MEDS: ATORVASTATIN 40 MG TAB NGT (21:00)
[2018-12-28 05:07] LABS: WHITE BLOOD COUNT 13.7 10^3/ul (4.8-10.8)
[2018-12-28 05:07] LABS: HEMATOCRIT 22.1 % (42.0-52.0); MEAN CORPUSCULAR HGB CONC 31.7 g/dl (32.0-37.0); MEAN CORPUSCULAR VOLUME 97.8 fl (82.0-101.0); MEAN PLATELET VOLUME 10.5 fl (7.4-10.4); PLATELET COUNT 192 10^3/UL (140-415); POSITIVE DIFF @See below; RED BLOOD COUNT 2.26 10^6/ul (4.70-6.10); RED CELL DISTRIBUTION WIDTH 17.8 % (11.5-14.5)
[2018-12-28 05:19] LABS: ADD MAN DIFF? YES
[2018-12-28 05:37] LABS: ALBUMIN 2.5 g/dl (3.3-4.9); ANION GAP 7 (5-13); BLOOD UREA NITROGEN 24 mg/dl (7-20); CALCIUM 7.8 mg/dl (8.4-10.2); CARBON DIOXIDE 25 mmol/L (21-31); CHLORIDE 111 mmol/L (97-110); CREATININE 4.33 mg/dl (0.61-1.24); GLUCOSE 131 mg/dl (70-220); PHOSPHORUS 2.4 mg/dl (2.5-4.9); POTASSIUM 3.5 mmol/L (3.5-5.1); SODIUM 143 mmol/L (135-144)
[2018-12-28] MEDS: PIPER-TAZO 2.25 GM/NS 50 ML IVPB ×3 (05:58→21:06)
[2018-12-28] MEDS: LANSOPRAZOLE 30 MG CAP GTB ×2 (05:58→18:03)
[2018-12-28] MEDS: SOD CHLORIDE 0.9% 1,000 ML IV ×2 (05:59→11:59)
[2018-12-28] MEDS: INSULIN ASPART [NOVOLOG] 3 ML PEN SC ×4 (06:04→18:00)
[2018-12-28 07:48] LABS: AADO2 Arterial 178.8 mmHg (7.0-24.0); Allen Test ACCEPTAB; Arterial Base Excess 1.4 mmol/L (-3.0-3); Arterial Blood Gas Oxygen Sat 94.1 mmHG (95.0-98.0); Arterial COHb 0.6 % (0.0-3.0); Arterial Fraction of Oxyhgb 93.3 % (93.0-99.0); Arterial HCO3 24.6 mmol/L (22.0-26.0); Arterial MetHb 0.3 % (0.0-1.5); Arterial pCO2 32.6 mmhg (35-45); MODE VENT - AC; Site Right Radial
[2018-12-28] MEDS: ALBUTEROL 0.083% (NEB) 2.5 MG/3 ML AMP HHN ×2 (08:00→13:16)
[2018-12-28 08:09] LABS: ANISOCYTOSIS 1+ (0-0); BAND NEUTROPHILS #M 3.4 10^3/ul (0.0-0.6); BAND NEUTROPHILS % (M) 25 % (0-4); BURR CELLS 1+ (0-0); EOSINOPHILS % (M) 4 % (0-7); LYMPHOCYTES #M 0.6 10^3/ul (0.8-2.9); LYMPHOCYTES % (M) 5 % (15-51); MONOCYTE #M 0.2 10^3/ul (0.3-0.9); MONOCYTES % (M) 2 % (0-11); PLATELET ESTIMATE NORMAL; POIKILOCYTOSIS 3+ (0-0); POLYCHROMASIA 3+ (0-0); SEG NEUT #M 9.2 10^3/ul (1.6-7.5); SEGMENTED NEUTROPHILS (M) % 64 % (39-77); SMUDGE%M 28 % (0-0); TEAR DROP CELLS 1+ (0-0)
[2018-12-28] MEDS: LEVETIRACETAM 500 MG (PMX) 100 ML IVPB ×2 (08:45→21:04)
[2018-12-28] MEDS: ALBUTEROL/IPRATROPIUM (NEB) 3 ML AMP HHN (08:52)
[2018-12-28] MEDS: LOSARTAN 50 MG TAB NGT (09:00)
[2018-12-28] MEDS: DOXAZOSIN 2 MG TAB NGT (09:00)
[2018-12-28] MEDS: CLOPIDOGREL 75 MG TAB GTB (09:00)
[2018-12-28] MEDS: ASPIRIN 81 MG TAB PO (09:00)
[2018-12-28] MEDS: BACLOFEN 10 MG TAB GTB ×2 (09:00→21:05)
[2018-12-28] MEDS: QUETIAPINE 25 MG TAB GTB ×2 (09:00→21:05)
[2018-12-28] MEDS: LACTOBACILLUS RHAMNOSUS CAP GTB ×3 (09:00→21:05)
[2018-12-28] MEDS: MULTIVIT/CA CARB/B CMPLX/FA TAB GTB (09:00)
[2018-12-28 10:31] LABS: HEMATOCRIT 24.1 % (42.0-52.0); HEMOGLOBIN 7.6 g/dl (14.0-18.0)
[2018-12-28] MEDS: IOHEXOL 300MG/ML 30 ML BTL (11:20)
[2018-12-28] MEDS: DEXMEDETOMIDINE IN DEXTROSE 5% 50 ML IV ×2 (12:00→18:45)
[2018-12-28] MEDS: MUPIROCIN 2% 22 GM OINT TOP (21:04)
[2018-12-28] MEDS: ATORVASTATIN 40 MG TAB NGT (21:05)
[2018-12-28] MEDS: GABAPENTIN 100 MG CAP PO (21:05)
[2018-12-28] MEDS: SERTRALINE 50 MG TAB NGT (21:06)
[2018-12-28] MEDS: FENTAnyl (DRIP) 1000 mcg/100mL 100 ML IV (21:14)
[2018-12-29] MEDS: INSULIN ASPART [NOVOLOG] 3 ML PEN SC ×4 (00:26→17:29)
[2018-12-29] MEDS: ALBUTEROL HFA 8 GM INHALER INH ×4 (01:54→19:38)
[2018-12-29] MEDS: hydrALAzine 20 MG INJ IV (02:35)
[2018-12-29] MEDS: DEXMEDETOMIDINE IN DEXTROSE 5% 50 ML IV ×3 (02:35→19:17)
[2018-12-29 05:26] LABS: ADD MAN DIFF? NO
[2018-12-29] MEDS: LANSOPRAZOLE 30 MG CAP GTB ×2 (05:29→17:25)
[2018-12-29] MEDS: PIPER-TAZO 2.25 GM/NS 50 ML IVPB ×3 (05:29→21:50)
[2018-12-29 05:31] LABS: BASOPHIL # 0.1 10^3/ul (0.0-0.1); BASOPHILS % 0.6 % (0.0-2.0); EOSINOPHILS # 0.6 10^3/ul (0.0-0.5); EOSINOPHILS % 4.8 % (0.0-7.0); HEMATOCRIT 24.3 % (42.0-52.0); HEMOGLOBIN 7.9 g/dl (14.0-18.0); LYMPHOCYTES # 0.6 10^3/ul (0.8-2.9); LYMPHOCYTES % 5.1 % (15.0-51.0); MEAN CORPUSCULAR HEMOGLOBIN 30.9 pg (29.0-33.0); MEAN CORPUSCULAR HGB CONC 32.5 g/dl (32.0-37.0); MEAN CORPUSCULAR VOLUME 94.9 fl (82.0-101.0); MONOCYTE # 0.3 10^3/ul (0.3-0.9); MONOCYTES % 2.1 % (0.0-11.0); NEUTROPHIL # 10.6 10^3/ul (1.6-7.5); NEUTROPHILS % 86.9 % (39.0-77.0); PLATELET COUNT 183 10^3/UL (140-415); POSITIVE DIFF @See below; RED BLOOD COUNT 2.56 10^6/ul (4.70-6.10); RED CELL DISTRIBUTION WIDTH 17.3 % (11.5-14.5)
[2018-12-29 05:31] LABS: WHITE BLOOD COUNT 12.2 10^3/ul (4.8-10.8)
[2018-12-29 05:56] LABS: VANCOMYCIN,RANDOM 12.6 ug/ml
[2018-12-29 05:57] LABS: ANION GAP 11 (5-13); BLOOD UREA NITROGEN 38 mg/dl (7-20); CALCIUM 9.2 mg/dl (8.4-10.2); CARBON DIOXIDE 25 mmol/L (21-31); CHLORIDE 108 mmol/L (97-110); CREATININE 6.48 mg/dl (0.61-1.24); GLUCOSE 154 mg/dl (70-220); PHOSPHORUS 3.8 mg/dl (2.5-4.9); POTASSIUM 4.2 mmol/L (3.5-5.1); SODIUM 144 mmol/L (135-144)
[2018-12-29 06:40] LABS: MAGNESIUM 2.3 mg/dl (1.7-2.5)
[2018-12-29] MEDS: BACLOFEN 10 MG TAB GTB ×2 (09:43→21:50)
[2018-12-29] MEDS: LACTOBACILLUS RHAMNOSUS CAP GTB ×3 (09:43→22:00)
[2018-12-29] MEDS: MULTIVIT/CA CARB/B CMPLX/FA TAB GTB (09:44)
[2018-12-29] MEDS: CLOPIDOGREL 75 MG TAB GTB (09:44)
[2018-12-29] MEDS: LEVETIRACETAM 500 MG (PMX) 100 ML IVPB ×2 (09:45→21:48)
[2018-12-29] MEDS: ASPIRIN 81 MG TAB PO (09:47)
[2018-12-29] MEDS: QUETIAPINE 25 MG TAB GTB ×2 (09:50→21:59)
[2018-12-29] MEDS: MUPIROCIN 2% 22 GM OINT TOP ×2 (09:51→21:49)
[2018-12-29] MEDS: DOXAZOSIN 2 MG TAB NGT (10:01)
[2018-12-29] MEDS: LOSARTAN 50 MG TAB NGT (10:07)
[2018-12-29] MEDS: VANCOMYCIN 1 GM 250 ML IVPB (10:18)
[2018-12-29] MEDS: ALBUMIN HUMAN 25% 100 ML IV (16:01)
[2018-12-29] MEDS: FENTAnyl (DRIP) 1000 mcg/100mL 100 ML IV (17:25)
[2018-12-29] MEDS: HEPARIN 1000 UNITS/ML 10 ML INJ CATHETER (18:31)
[2018-12-29] MEDS: EPOETIN ALFA-EPBX (ESRD) 10,000 UNIT/ML VIAL SC (21:52)
[2018-12-29] MEDS: GABAPENTIN 100 MG CAP PO (21:53)
[2018-12-29] MEDS: ATORVASTATIN 40 MG TAB NGT (21:53)
[2018-12-29] MEDS: SERTRALINE 50 MG TAB NGT (21:59)
[2018-12-30] MEDS: ALBUTEROL HFA 8 GM INHALER INH ×4 (01:20→19:22)
[2018-12-30 04:57] LABS: ADD MAN DIFF? NO
[2018-12-30 05:04] LABS: BASOPHILS % 0.3 % (0.0-2.0); EOSINOPHILS # 0.4 10^3/ul (0.0-0.5); HEMATOCRIT 23.7 % (42.0-52.0); HEMOGLOBIN 7.6 g/dl (14.0-18.0); LYMPHOCYTES # 0.7 10^3/ul (0.8-2.9); LYMPHOCYTES % 9.4 % (15.0-51.0); MEAN CORPUSCULAR HGB CONC 32.1 g/dl (32.0-37.0); MEAN CORPUSCULAR VOLUME 93.7 fl (82.0-101.0); MEAN PLATELET VOLUME 10.5 fl (7.4-10.4); MONOCYTE # 0.3 10^3/ul (0.3-0.9); MONOCYTES % 4.4 % (0.0-11.0); NEUTROPHIL # 5.9 10^3/ul (1.6-7.5); PLATELET COUNT 155 10^3/UL (140-415); RED BLOOD COUNT 2.53 10^6/ul (4.70-6.10); RED CELL DISTRIBUTION WIDTH 16.9 % (11.5-14.5)
[2018-12-30 05:04] LABS: WHITE BLOOD COUNT 7.4 10^3/ul (4.8-10.8)
[2018-12-30] MEDS: LANSOPRAZOLE 30 MG CAP GTB ×2 (05:14→18:38)
[2018-12-30] MEDS: ACETAMINOPHEN 650MG/20.3ML CUP PEG (05:14)
[2018-12-30] MEDS: PIPER-TAZO 2.25 GM/NS 50 ML IVPB ×3 (05:14→21:55)
[2018-12-30 05:21] LABS: ANION GAP 10 (5-13); BLOOD UREA NITROGEN 19 mg/dl (7-20); CARBON DIOXIDE 28 mmol/L (21-31); CHLORIDE 102 mmol/L (97-110); CREATININE 3.77 mg/dl (0.61-1.24); Estimated GFR 17 mL/min (>60); GLUCOSE 117 mg/dl (70-220); MAGNESIUM 2.1 mg/dl (1.7-2.5); PHOSPHORUS 2.2 mg/dl (2.5-4.9); POTASSIUM 3.4 mmol/L (3.5-5.1); SODIUM 140 mmol/L (135-144)
[2018-12-30] MEDS: INSULIN ASPART [NOVOLOG] 3 ML PEN SC ×4 (06:00→18:00)
[2018-12-30] MEDS: QUETIAPINE 25 MG TAB GTB ×2 (08:45→21:45)
[2018-12-30] MEDS: MULTIVIT/CA CARB/B CMPLX/FA TAB GTB (08:45)
[2018-12-30] MEDS: CLOPIDOGREL 75 MG TAB GTB (08:45)
[2018-12-30] MEDS: LACTOBACILLUS RHAMNOSUS CAP GTB ×3 (08:45→21:55)
[2018-12-30] MEDS: BACLOFEN 10 MG TAB GTB ×2 (08:45→21:55)
[2018-12-30] MEDS: ASPIRIN 81 MG TAB PO (08:46)
[2018-12-30] MEDS: DOXAZOSIN 2 MG TAB NGT (08:46)
[2018-12-30] MEDS: LOSARTAN 50 MG TAB NGT (09:00)
[2018-12-30] MEDS: LEVETIRACETAM 500 MG (PMX) 100 ML IVPB ×2 (09:39→21:15)
[2018-12-30] MEDS: MUPIROCIN 2% 22 GM OINT TOP ×2 (09:42→21:46)
[2018-12-30] MEDS: DEXMEDETOMIDINE IN DEXTROSE 5% 50 ML IV (13:27)
[2018-12-30] MEDS: IOHEXOL 14.3 MG(I)/ML (ADULT) BTL PO (17:10)
[2018-12-30 18:35] LABS: HEMATOCRIT 24.1 % (42.0-52.0); HEMOGLOBIN 7.7 g/dl (14.0-18.0)
[2018-12-30] MEDS: FENTAnyl (DRIP) 1000 mcg/100mL 100 ML IV (19:36)
[2018-12-30] MEDS: SERTRALINE 50 MG TAB NGT (21:45)
[2018-12-30] MEDS: ATORVASTATIN 40 MG TAB NGT (21:45)
[2018-12-30] MEDS: GABAPENTIN 100 MG CAP PO (21:45)
[2018-12-31] MEDS: ALBUTEROL HFA 8 GM INHALER INH ×3 (01:08→19:32)
[2018-12-31] MEDS: LANSOPRAZOLE 30 MG CAP GTB ×2 (05:19→18:38)
[2018-12-31] MEDS: PIPER-TAZO 2.25 GM/NS 50 ML IVPB (05:19)
[2018-12-31 05:21] LABS: ADD MAN DIFF? NO
[2018-12-31] MEDS: DEXMEDETOMIDINE IN DEXTROSE 5% 50 ML IV (05:23)
[2018-12-31 05:28] LABS: WHITE BLOOD COUNT 7.8 10^3/ul (4.8-10.8)
[2018-12-31 05:28] LABS: BASOPHILS % 0.5 % (0.0-2.0); EOSINOPHILS # 0.4 10^3/ul (0.0-0.5); EOSINOPHILS % 5.1 % (0.0-7.0); HEMATOCRIT 23.3 % (42.0-52.0); HEMOGLOBIN 7.3 g/dl (14.0-18.0); LYMPHOCYTES # 0.8 10^3/ul (0.8-2.9); MEAN CORPUSCULAR HEMOGLOBIN 29.6 pg (29.0-33.0); MEAN CORPUSCULAR HGB CONC 31.3 g/dl (32.0-37.0); MEAN CORPUSCULAR VOLUME 94.3 fl (82.0-101.0); MEAN PLATELET VOLUME 10.8 fl (7.4-10.4); MONOCYTE # 0.5 10^3/ul (0.3-0.9); MONOCYTES % 6.2 % (0.0-11.0); NEUTROPHILS % 77.7 % (39.0-77.0); PLATELET COUNT 141 10^3/UL (140-415); RED BLOOD COUNT 2.47 10^6/ul (4.70-6.10); RED CELL DISTRIBUTION WIDTH 16.9 % (11.5-14.5)
[2018-12-31] MEDS: INSULIN ASPART [NOVOLOG] 3 ML PEN SC ×4 (05:44→18:00)
[2018-12-31 06:02] LABS: ANION GAP 12 (5-13); BLOOD UREA NITROGEN 27 mg/dl (7-20); CARBON DIOXIDE 26 mmol/L (21-31); CHLORIDE 99 mmol/L (97-110); CREATININE 5.31 mg/dl (0.61-1.24); Estimated GFR 11 mL/min (>60); GLUCOSE 100 mg/dl (70-220); SODIUM 137 mmol/L (135-144)
[2018-12-31] MEDS: NORepinephrine 8MG/250 ML (PMX 250 ML IV (06:27)
[2018-12-31] MEDS: LOSARTAN 50 MG TAB NGT (08:53)
[2018-12-31] MEDS: DOXAZOSIN 2 MG TAB NGT (08:54)
[2018-12-31] MEDS: ALBUMIN HUMAN 25% 100 ML IV (08:58)
[2018-12-31] MEDS: MIDAZOLAM (DRIP) 50 mg/50 mL 50 ML IV ×2 (09:15→19:54)
[2018-12-31] MEDS ORDERED: AMIKACIN IV PER PHARMACY XX (10:30)
[2018-12-31] MEDS: BUDESONIDE (NEB) 0.5MG/2ML AMP HHN ×2 (11:57→19:32)
[2018-12-31] MEDS: HEPARIN 1000 UNITS/ML 10 ML INJ CATHETER (12:20)
[2018-12-31] MEDS: LACTOBACILLUS RHAMNOSUS CAP GTB ×3 (13:00→21:22)
[2018-12-31] MEDS: MUPIROCIN 2% 22 GM OINT TOP ×2 (13:06→21:28)
[2018-12-31] MEDS: MULTIVIT/CA CARB/B CMPLX/FA TAB GTB (13:06)
[2018-12-31] MEDS: BACLOFEN 10 MG TAB GTB ×2 (13:07→21:22)
[2018-12-31] MEDS: QUETIAPINE 25 MG TAB GTB ×2 (13:08→21:21)
[2018-12-31] MEDS: LEVETIRACETAM 500 MG (PMX) 100 ML IVPB ×2 (13:08→21:35)
[2018-12-31] MEDS: ALBUTEROL/IPRATROPIUM (NEB) 3 ML AMP HHN (14:00)
[2018-12-31] MEDS: metroNIDAZOLE 500 MG/NS (PMX) 100 ML IVPB ×2 (14:04→22:49)
[2018-12-31] MEDS: AMIKACIN 475 MG in SOD CHLORIDE 0.9% 100 ML IVPB (14:04)
[2018-12-31 18:39] LABS: IMMEDIATE SPIN CROSSMATCH 1 1
[2018-12-31] MEDS: EPOETIN ALFA-EPBX (ESRD) 10,000 UNIT/ML VIAL SC (18:40)
[2018-12-31] MEDS: FENTAnyl (DRIP) 1000 mcg/100mL 100 ML IV (18:43)
[2018-12-31] MEDS: IPRATROPIUM (HFA) 12.9 GM INHALER INH (19:33)
[2018-12-31] MEDS: SERTRALINE 50 MG TAB NGT (21:21)
[2018-12-31] MEDS: GABAPENTIN 100 MG CAP PO (21:22)
[2018-12-31] MEDS: ATORVASTATIN 40 MG TAB NGT (21:22)
[2019-01-01] MEDS ORDERED: IPRATROPIUM (NEB) 0.5 MG/2.5 ML AMP (01:32)
[2019-01-01] MEDS: IPRATROPIUM (HFA) 12.9 GM INHALER INH ×4 (01:34→20:15)
[2019-01-01] MEDS: ALBUTEROL HFA 8 GM INHALER INH ×4 (01:34→20:15)
[2019-01-01] MEDS: MIDAZOLAM (DRIP) 50 mg/50 mL 50 ML IV ×2 (04:32→14:32)
[2019-01-01 05:29] LABS: ADD MAN DIFF? NO
[2019-01-01 05:32] LABS: BASOPHILS % 0.5 % (0.0-2.0); EOSINOPHILS # 0.3 10^3/ul (0.0-0.5); EOSINOPHILS % 3.2 % (0.0-7.0); HEMATOCRIT 25.4 % (42.0-52.0); HEMOGLOBIN 8.4 g/dl (14.0-18.0); LYMPHOCYTES % 12.2 % (15.0-51.0); MEAN CORPUSCULAR HEMOGLOBIN 29.9 pg (29.0-33.0); MEAN CORPUSCULAR HGB CONC 33.1 g/dl (32.0-37.0); MEAN CORPUSCULAR VOLUME 90.4 fl (82.0-101.0); MEAN PLATELET VOLUME 11.1 fl (7.4-10.4); MONOCYTE # 0.7 10^3/ul (0.3-0.9); MONOCYTES % 8.7 % (0.0-11.0); NEUTROPHIL # 6.2 10^3/ul (1.6-7.5); NEUTROPHILS % 74.2 % (39.0-77.0); PLATELET COUNT 166 10^3/UL (140-415); RED BLOOD COUNT 2.81 10^6/ul (4.70-6.10)
[2019-01-01 05:32] LABS: WHITE BLOOD COUNT 8.3 10^3/ul (4.8-10.8)
[2019-01-01] MEDS: metroNIDAZOLE 500 MG/NS (PMX) 100 ML IVPB ×3 (05:48→22:07)
[2019-01-01] MEDS: LANSOPRAZOLE 30 MG CAP GTB ×2 (05:48→17:25)
[2019-01-01] MEDS: DEXTROSE 50% 50 ML SYRINGE IV (05:56)
[2019-01-01] MEDS: INSULIN ASPART [NOVOLOG] 3 ML PEN SC ×6 (06:00→21:43)
[2019-01-01] MEDS: NORepinephrine 8MG/250 ML (PMX 250 ML IV (06:05)
[2019-01-01] MEDS: FENTAnyl (DRIP) 1000 mcg/100mL 100 ML IV ×2 (06:08→22:09)
[2019-01-01 06:41] LABS: ANION GAP 13 (5-13); BLOOD UREA NITROGEN 14 mg/dl (7-20); CALCIUM 9.4 mg/dl (8.4-10.2); CARBON DIOXIDE 25 mmol/L (21-31); CHLORIDE 102 mmol/L (97-110); CREATININE 3.85 mg/dl (0.61-1.24); Estimated GFR 16 mL/min (>60); GLUCOSE 61 mg/dl (70-220); MAGNESIUM 2.1 mg/dl (1.7-2.5); PHOSPHORUS 3.2 mg/dl (2.5-4.9); POTASSIUM 3.1 mmol/L (3.5-5.1); SODIUM 140 mmol/L (135-144)
[2019-01-01] MEDS: LACTOBACILLUS RHAMNOSUS CAP GTB ×3 (08:47→21:35)
[2019-01-01] MEDS: BACLOFEN 10 MG TAB GTB ×2 (08:47→21:35)
[2019-01-01] MEDS: MULTIVIT/CA CARB/B CMPLX/FA TAB GTB (08:47)
[2019-01-01] MEDS: QUETIAPINE 25 MG TAB GTB ×2 (08:47→21:35)
[2019-01-01] MEDS: LEVETIRACETAM 500 MG (PMX) 100 ML IVPB ×2 (08:48→21:33)
[2019-01-01] MEDS: DOXAZOSIN 2 MG TAB NGT (08:48)
[2019-01-01] MEDS: MUPIROCIN 2% 22 GM OINT TOP ×2 (08:56→21:49)
[2019-01-01] MEDS: DEXTROSE 10% 1,000 ML IV (09:08)
[2019-01-01] MEDS: BUDESONIDE (NEB) 0.5MG/2ML AMP HHN ×2 (12:00→20:15)
[2019-01-01] MEDS: METOCLOPRAMIDE 10 MG INJ IV ×2 (12:38→17:32)
[2019-01-01] MEDS: GABAPENTIN 100 MG CAP PO (21:35)
[2019-01-01] MEDS: SERTRALINE 50 MG TAB NGT (21:35)
[2019-01-01] MEDS: ATORVASTATIN 40 MG TAB NGT (21:35)
[2019-01-02] MEDS: METOCLOPRAMIDE 10 MG INJ IV ×4 (00:51→17:02)
[2019-01-02] MEDS: INSULIN ASPART [NOVOLOG] 3 ML PEN SC ×6 (00:54→21:54)
[2019-01-02] MEDS: IPRATROPIUM (HFA) 12.9 GM INHALER INH ×4 (03:11→20:47)
[2019-01-02] MEDS: ALBUTEROL HFA 8 GM INHALER INH ×4 (03:11→20:47)
[2019-01-02] MEDS: NORepinephrine 8MG/250 ML (PMX 250 ML IV (04:43)
[2019-01-02 05:05] LABS: ADD MAN DIFF? NO
[2019-01-02 05:14] LABS: WHITE BLOOD COUNT 6.7 10^3/ul (4.8-10.8)
[2019-01-02 05:14] LABS: BASOPHILS % 0.6 % (0.0-2.0); EOSINOPHILS # 0.4 10^3/ul (0.0-0.5); EOSINOPHILS % 5.4 % (0.0-7.0); HEMATOCRIT 25.1 % (42.0-52.0); HEMOGLOBIN 8.3 g/dl (14.0-18.0); LYMPHOCYTES # 1.2 10^3/ul (0.8-2.9); LYMPHOCYTES % 17.8 % (15.0-51.0); MEAN CORPUSCULAR HEMOGLOBIN 29.6 pg (29.0-33.0); MEAN CORPUSCULAR HGB CONC 33.1 g/dl (32.0-37.0); MEAN CORPUSCULAR VOLUME 89.6 fl (82.0-101.0); MEAN PLATELET VOLUME 10.5 fl (7.4-10.4); MONOCYTE # 0.4 10^3/ul (0.3-0.9); MONOCYTES % 6.1 % (0.0-11.0); NEUTROPHIL # 4.6 10^3/ul (1.6-7.5); NEUTROPHILS % 68.3 % (39.0-77.0); PLATELET COUNT 182 10^3/UL (140-415); POSITIVE DIFF @See below; RED CELL DISTRIBUTION WIDTH 16.9 % (11.5-14.5)
[2019-01-02] MEDS: LANSOPRAZOLE 30 MG CAP GTB ×2 (05:42→17:02)
[2019-01-02] MEDS: metroNIDAZOLE 500 MG/NS (PMX) 100 ML IVPB ×3 (05:42→22:32)
[2019-01-02 05:54] LABS: ANION GAP 11 (5-13); BLOOD UREA NITROGEN 17 mg/dl (7-20); CALCIUM 9.1 mg/dl (8.4-10.2); CARBON DIOXIDE 25 mmol/L (21-31); CHLORIDE 100 mmol/L (97-110); CREATININE 5.05 mg/dl (0.61-1.24); Estimated GFR 12 mL/min (>60); GLUCOSE 167 mg/dl (70-220); PHOSPHORUS 3.5 mg/dl (2.5-4.9); SODIUM 136 mmol/L (135-144)
[2019-01-02 06:10] LABS: AADO2 Arterial 474.6 mmHg (7.0-24.0); Arterial Base Excess 0.8 mmol/L (-3.0-3); Arterial Blood Gas Oxygen Sat 99.3 mmHG (95.0-98.0); Arterial COHb 0.3 % (0.0-3.0); Arterial Fraction of Oxyhgb 98.7 % (93.0-99.0); Arterial HCO3 24.4 mmol/L (22.0-26.0); Arterial MetHb 0.3 % (0.0-1.5); MODE VENT - AC; Site Right Brachial
[2019-01-02] MEDS: MIDAZOLAM (DRIP) 50 mg/50 mL 50 ML IV (07:12)
[2019-01-02 08:13] LABS: ANISOCYTOSIS 1+ (0-0); BAND NEUTROPHILS #M 0.2 10^3/ul (0.0-0.6); BAND NEUTROPHILS % (M) 4 % (0-4); EOSINOPHILS % (M) 4 % (0-7); LYMPHOCYTES #M 0.8 10^3/ul (0.8-2.9); LYMPHOCYTES % (M) 12 % (15-51); MONOCYTE #M 0.6 10^3/ul (0.3-0.9); MONOCYTES % (M) 10 % (0-11); PLATELET ESTIMATE NORMAL; POIKILOCYTOSIS 1+ (0-0); POLYCHROMASIA 2+ (0-0); SEG NEUT #M 4.7 10^3/ul (1.6-7.5); SEGMENTED NEUTROPHILS (M) % 70 % (39-77); SMUDGE%M 3 % (0-0)
[2019-01-02] MEDS: QUETIAPINE 25 MG TAB GTB ×2 (08:26→21:49)
[2019-01-02] MEDS: LEVETIRACETAM 500 MG (PMX) 100 ML IVPB ×2 (08:26→21:45)
[2019-01-02] MEDS: MULTIVIT/CA CARB/B CMPLX/FA TAB GTB (08:26)
[2019-01-02] MEDS: LACTOBACILLUS RHAMNOSUS CAP GTB ×3 (08:27→21:48)
[2019-01-02] MEDS: BACLOFEN 10 MG TAB GTB ×2 (08:27→21:30)
[2019-01-02] MEDS: MUPIROCIN 2% 22 GM OINT TOP ×2 (08:27→21:48)
[2019-01-02] MEDS: DOXAZOSIN 2 MG TAB NGT (08:28)
[2019-01-02] MEDS: POTASSIUM CHLORIDE 100 ML IVPB ×2 (09:53→11:30)
[2019-01-02] MEDS: BUDESONIDE (NEB) 0.5MG/2ML AMP HHN ×2 (10:08→20:48)
[2019-01-02] MEDS: GABAPENTIN 100 MG CAP PO (21:49)
[2019-01-02] MEDS: SERTRALINE 50 MG TAB NGT (21:49)
[2019-01-02] MEDS: ATORVASTATIN 40 MG TAB NGT (21:49)
[2019-01-03] MEDS: METOCLOPRAMIDE 10 MG INJ IV ×4 (00:41→18:47)
[2019-01-03] MEDS: INSULIN ASPART [NOVOLOG] 3 ML PEN SC ×6 (00:46→21:00)
[2019-01-03] MEDS: IPRATROPIUM (HFA) 12.9 GM INHALER INH ×4 (01:11→20:12)
[2019-01-03] MEDS: ALBUTEROL HFA 8 GM INHALER INH ×4 (01:11→20:12)
[2019-01-03 05:36] LABS: WHITE BLOOD COUNT 11.1 10^3/ul (4.8-10.8)
[2019-01-03 05:36] LABS: HEMOGLOBIN 8.8 g/dl (14.0-18.0); MEAN CORPUSCULAR HEMOGLOBIN 29.2 pg (29.0-33.0); MEAN CORPUSCULAR HGB CONC 32.6 g/dl (32.0-37.0); MEAN CORPUSCULAR VOLUME 89.7 fl (82.0-101.0); MEAN PLATELET VOLUME 10.8 fl (7.4-10.4); PLATELET COUNT 222 10^3/UL (140-415); POSITIVE DIFF @See below; RED BLOOD COUNT 3.01 10^6/ul (4.70-6.10); RED CELL DISTRIBUTION WIDTH 17.1 % (11.5-14.5)
[2019-01-03] MEDS: metroNIDAZOLE 500 MG/NS (PMX) 100 ML IVPB ×3 (05:40→22:09)
[2019-01-03 05:41] LABS: ADD MAN DIFF? YES
[2019-01-03] MEDS: NORepinephrine 8MG/250 ML (PMX 250 ML IV (05:45)
[2019-01-03 05:56] LABS: ANION GAP 10 (5-13); BLOOD UREA NITROGEN 21 mg/dl (7-20); CARBON DIOXIDE 23 mmol/L (21-31); CHLORIDE 103 mmol/L (97-110); CREATININE 6.13 mg/dl (0.61-1.24); Estimated GFR 9 mL/min (>60); GLUCOSE 151 mg/dl (70-220); MAGNESIUM 1.9 mg/dl (1.7-2.5); POTASSIUM 3.6 mmol/L (3.5-5.1); SODIUM 136 mmol/L (135-144)
[2019-01-03] MEDS: LANSOPRAZOLE 30 MG CAP GTB ×2 (06:03→18:47)
[2019-01-03] MEDS: DOXAZOSIN 2 MG TAB NGT (09:00)
[2019-01-03] MEDS: LEVETIRACETAM 500 MG (PMX) 100 ML IVPB ×2 (09:41→21:05)
[2019-01-03] MEDS: BACLOFEN 10 MG TAB GTB ×2 (09:42→21:04)
[2019-01-03] MEDS: MUPIROCIN 2% 22 GM OINT TOP ×2 (09:42→21:08)
[2019-01-03] MEDS: LACTOBACILLUS RHAMNOSUS CAP GTB ×3 (09:42→21:03)
[2019-01-03] MEDS: MULTIVIT/CA CARB/B CMPLX/FA TAB GTB (09:43)
[2019-01-03] MEDS: QUETIAPINE 25 MG TAB GTB ×2 (09:43→21:07)
[2019-01-03] MEDS: BUDESONIDE (NEB) 0.5MG/2ML AMP HHN ×2 (10:08→20:14)
[2019-01-03 10:42] LABS: ANISOCYTOSIS 1+ (0-0); BAND NEUTROPHILS #M 2.1 10^3/ul (0.0-0.6); BAND NEUTROPHILS % (M) 19 % (0-4); BURR CELLS 1+ (0-0); LYMPHOCYTES #M 0.5 10^3/ul (0.8-2.9); LYMPHOCYTES % (M) 5 % (15-51); MONOCYTE #M 0.2 10^3/ul (0.3-0.9); MONOCYTES % (M) 2 % (0-11); MYELOCYTES #M 0.3 10^3/ul (0.0-0.0); MYELOCYTES % (M) 3 % (0-0); PLATELET ESTIMATE NORMAL; POIKILOCYTOSIS 2+ (0-0); POLYCHROMASIA 3+ (0-0); REACTIVE LYMPHOCYTES #M 0.5 10^3/ul (0.0-0.0); REACTIVE LYMPHOCYTES% (M) 5 % (0-0); SEG NEUT #M 7.6 10^3/ul (1.6-7.5); SEGMENTED NEUTROPHILS (M) % 66 % (39-77); SMUDGE%M 6 % (0-0)
[2019-01-03] MEDS: ALBUMIN HUMAN 25% 100 ML IV (17:39)
[2019-01-03] MEDS: HEPARIN 1000 UNITS/ML 10 ML INJ CATHETER (20:43)
[2019-01-03] MEDS ORDERED: [UNRECOGNIZED DRUG - OTHER] XX (21:00)
[2019-01-03] MEDS: ATORVASTATIN 40 MG TAB NGT (21:03)
[2019-01-03] MEDS: GABAPENTIN 100 MG CAP PO (21:04)
[2019-01-03] MEDS: SERTRALINE 50 MG TAB NGT (21:04)
[2019-01-03] MEDS: EPOETIN ALFA-EPBX (ESRD) 10,000 UNIT/ML VIAL SC (21:11)
[2019-01-03] MEDS: AMIKACIN 300 MG in SOD CHLORIDE 0.9% 100 ML IVPB (22:09)
[2019-01-04] MEDS: METOCLOPRAMIDE 10 MG INJ IV ×5 (00:27→23:48)
[2019-01-04] MEDS: INSULIN ASPART [NOVOLOG] 3 ML PEN SC ×6 (00:38→21:24)
[2019-01-04] MEDS: ALBUTEROL HFA 8 GM INHALER INH ×4 (01:42→19:11)
[2019-01-04] MEDS: IPRATROPIUM (HFA) 12.9 GM INHALER INH ×4 (01:42→19:11)
[2019-01-04 05:24] LABS: ADD MAN DIFF? NO
[2019-01-04 05:31] LABS: BASOPHIL # 0.1 10^3/ul (0.0-0.1); BASOPHILS % 0.5 % (0.0-2.0); EOSINOPHILS # 0.3 10^3/ul (0.0-0.5); EOSINOPHILS % 2.1 % (0.0-7.0); HEMATOCRIT 26.1 % (42.0-52.0); HEMOGLOBIN 8.4 g/dl (14.0-18.0); LYMPHOCYTES % 7.8 % (15.0-51.0); MEAN CORPUSCULAR HEMOGLOBIN 29.3 pg (29.0-33.0); MEAN CORPUSCULAR HGB CONC 32.2 g/dl (32.0-37.0); MEAN CORPUSCULAR VOLUME 90.9 fl (82.0-101.0); MEAN PLATELET VOLUME 10.5 fl (7.4-10.4); MONOCYTE # 0.4 10^3/ul (0.3-0.9); NEUTROPHIL # 10.4 10^3/ul (1.6-7.5); NEUTROPHILS % 85.8 % (39.0-77.0); PLATELET COUNT 257 10^3/UL (140-415); RED BLOOD COUNT 2.87 10^6/ul (4.70-6.10); RED CELL DISTRIBUTION WIDTH 17.2 % (11.5-14.5)
[2019-01-04 05:31] LABS: WHITE BLOOD COUNT 12.2 10^3/ul (4.8-10.8)
[2019-01-04] MEDS: metroNIDAZOLE 500 MG/NS (PMX) 100 ML IVPB ×3 (05:32→21:15)
[2019-01-04] MEDS: LANSOPRAZOLE 30 MG CAP GTB ×2 (05:32→18:19)
[2019-01-04 05:40] LABS: ALBUMIN 3.1 g/dl (3.3-4.9); ANION GAP 10 (5-13); BLOOD UREA NITROGEN 12 mg/dl (7-20); CALCIUM 9.4 mg/dl (8.4-10.2); CARBON DIOXIDE 25 mmol/L (21-31); CHLORIDE 108 mmol/L (97-110); CREATININE 3.95 mg/dl (0.61-1.24); GLUCOSE 144 mg/dl (70-220); POTASSIUM 3.7 mmol/L (3.5-5.1); SODIUM 143 mmol/L (135-144)
[2019-01-04] MEDS: BUDESONIDE (NEB) 0.5MG/2ML AMP HHN ×2 (08:27→19:11)
[2019-01-04] MEDS: BACLOFEN 10 MG TAB GTB ×2 (08:33→21:14)
[2019-01-04] MEDS: DOXAZOSIN 2 MG TAB NGT (08:33)
[2019-01-04] MEDS: LEVETIRACETAM 500 MG (PMX) 100 ML IVPB (08:33)
[2019-01-04] MEDS: LACTOBACILLUS RHAMNOSUS CAP GTB ×3 (08:33→21:14)
[2019-01-04] MEDS: MULTIVIT/CA CARB/B CMPLX/FA TAB GTB (08:33)
[2019-01-04] MEDS: QUETIAPINE 25 MG TAB GTB ×2 (08:34→21:14)
[2019-01-04] MEDS: MUPIROCIN 2% 22 GM OINT TOP ×2 (08:35→21:16)
[2019-01-04] MEDS: ACETAMINOPHEN 650MG/20.3ML CUP PEG (08:42)
[2019-01-04] MEDS: DEXMEDETOMIDINE IN DEXTROSE 5% 50 ML IV ×2 (09:04→16:31)
[2019-01-04] MEDS: CLOPIDOGREL 75 MG TAB GTB (09:39)
[2019-01-04] MEDS: hydrALAzine 20 MG INJ IV (11:37)
[2019-01-04] MEDS: LORAZEPAM 2 MG INJ IV (15:45)
[2019-01-04 18:59] LABS: ADD UMIC YES; UR ASCORBIC ACID NEGATIVE (NEGATIVE); UR BACTERIA FEW /HPF (NONE SEEN); UR BILIRUBIN (Dip) NEGATIVE (NEGATIVE); UR BLOOD (Dip) 1+ mg/dL (NEGATIVE); UR CLARITY SLIGHTLY CLOUDY (CLEAR); UR COLOR AMBER (YELLOW); UR GLUCOSE (Dip) 2+ mg/dL (NEGATIVE); UR HYALINE CAST FEW /HPF (NONE SEEN); UR KETONES (Dip) TRACE mg/dL (NEGATIVE); UR LEUKOCYTE ESTERASE (Dip) TRACE Leu/ul (NEGATIVE); UR NITRITE (Dip) NEGATIVE (NEGATIVE); UR RBC 4 /HPF (0-5); UR SPECIFIC GRAVITY (Dip) 1.013 (1.003-1.030); UR TOTAL PROTEIN (Dip) 3+ mg/dl (NEGATIVE); UR UROBILINOGEN (Dip) NEGATIVE (NEGATIVE); UR WBC 12 /HPF (0-5)
[2019-01-04] MEDS: GABAPENTIN 100 MG CAP PO (21:14)
[2019-01-04] MEDS: ATORVASTATIN 40 MG TAB NGT (21:14)
[2019-01-05] MEDS: INSULIN ASPART [NOVOLOG] 3 ML PEN SC ×6 (00:52→21:00)
[2019-01-05] MEDS: DEXMEDETOMIDINE IN DEXTROSE 5% 50 ML IV ×3 (01:48→19:37)
[2019-01-05] MEDS: IPRATROPIUM (HFA) 12.9 GM INHALER INH ×3 (01:49→13:06)
[2019-01-05] MEDS: ALBUTEROL HFA 8 GM INHALER INH ×3 (01:49→13:06)
[2019-01-05 04:58] LABS: ADD MAN DIFF? NO
[2019-01-05 05:09] LABS: BASOPHIL # 0.1 10^3/ul (0.0-0.1); BASOPHILS % 0.5 % (0.0-2.0); EOSINOPHILS # 0.4 10^3/ul (0.0-0.5); EOSINOPHILS % 2.7 % (0.0-7.0); HEMATOCRIT 27.9 % (42.0-52.0); HEMOGLOBIN 8.9 g/dl (14.0-18.0); LYMPHOCYTES # 1.1 10^3/ul (0.8-2.9); LYMPHOCYTES % 8.1 % (15.0-51.0); MEAN CORPUSCULAR HEMOGLOBIN 28.9 pg (29.0-33.0); MEAN CORPUSCULAR HGB CONC 31.9 g/dl (32.0-37.0); MEAN CORPUSCULAR VOLUME 90.6 fl (82.0-101.0); MEAN PLATELET VOLUME 10.4 fl (7.4-10.4); MONOCYTE # 0.5 10^3/ul (0.3-0.9); MONOCYTES % 3.6 % (0.0-11.0); NEUTROPHIL # 10.8 10^3/ul (1.6-7.5); PLATELET COUNT 272 10^3/UL (140-415); RED BLOOD COUNT 3.08 10^6/ul (4.70-6.10); RED CELL DISTRIBUTION WIDTH 17.2 % (11.5-14.5)
[2019-01-05 05:09] LABS: WHITE BLOOD COUNT 12.9 10^3/ul (4.8-10.8)
[2019-01-05 05:31] LABS: ALBUMIN 3.2 g/dl (3.3-4.9); ANION GAP 12 (5-13); BLOOD UREA NITROGEN 19 mg/dl (7-20); CALCIUM 9.7 mg/dl (8.4-10.2); CARBON DIOXIDE 24 mmol/L (21-31); CHLORIDE 107 mmol/L (97-110); CREATININE 5.22 mg/dl (0.61-1.24); GLUCOSE 201 mg/dl (70-220); MAGNESIUM 2.2 mg/dl (1.7-2.5); PHOSPHORUS 3.2 mg/dl (2.5-4.9); POTASSIUM 3.4 mmol/L (3.5-5.1); SODIUM 143 mmol/L (135-144)
[2019-01-05] MEDS: LANSOPRAZOLE 30 MG CAP GTB ×2 (05:34→17:04)
[2019-01-05] MEDS: METOCLOPRAMIDE 10 MG INJ IV ×3 (05:34→17:04)
[2019-01-05] MEDS: metroNIDAZOLE 500 MG/NS (PMX) 100 ML IVPB ×3 (05:34→21:44)
[2019-01-05] MEDS: hydrALAzine 20 MG INJ IV (05:34)
[2019-01-05] MEDS: MULTIVIT/CA CARB/B CMPLX/FA TAB GTB (08:57)
[2019-01-05] MEDS: LACTOBACILLUS RHAMNOSUS CAP GTB ×3 (08:57→21:44)
[2019-01-05] MEDS: ALTEPLASE (CATHFLO) 2 MG INJ CATHETER ×2 (08:57→11:21)
[2019-01-05] MEDS: CLOPIDOGREL 75 MG TAB GTB (08:57)
[2019-01-05] MEDS: BACLOFEN 10 MG TAB GTB ×2 (08:58→21:44)
[2019-01-05] MEDS: LOSARTAN 25 MG TAB PO (09:00)
[2019-01-05] MEDS: DOXAZOSIN 2 MG TAB NGT (09:01)
[2019-01-05] MEDS: MUPIROCIN 2% 22 GM OINT TOP ×2 (09:06→21:45)
[2019-01-05] MEDS: BUDESONIDE (NEB) 0.5MG/2ML AMP HHN ×2 (09:22→20:00)
[2019-01-05 10:32] LABS: AADO2 Arterial 161.5 mmHg (7.0-24.0); Arterial Base Excess 1.6 mmol/L (-3.0-3); Arterial Blood Gas Oxygen Sat 94.4 mmHG (95.0-98.0); Arterial COHb 0.4 % (0.0-3.0); Arterial Fraction of Oxyhgb 93.7 % (93.0-99.0); Arterial HCO3 26.2 mmol/L (22.0-26.0); Arterial MetHb 0.3 % (0.0-1.5); Arterial pCO2 41.2 mmhg (35-45); Blood Gas PS 10; MODE VENT - CPAP; Site Right Brachial
[2019-01-05] MEDS: INSULIN GLARGINE [LANTus] (100 UNITS/ML) SYG SC (11:29)
[2019-01-05] MEDS: HEPARIN 1000 UNITS/ML 10 ML INJ CATHETER (14:31)
[2019-01-05] MEDS: AMIKACIN 300 MG in SOD CHLORIDE 0.9% 100 ML IVPB (14:43)
[2019-01-05] MEDS: EPOETIN ALFA-EPBX (ESRD) 10,000 UNIT/ML VIAL SC (18:12)
[2019-01-05] MEDS ORDERED: ALBUTEROL/IPRATROPIUM (NEB) 3 ML AMP HHN (20:00)
[2019-01-05 20:23] LABS: AADO2 Arterial 566.9 mmHg (7.0-24.0); Arterial Base Excess 3.1 mmol/L (-3.0-3); Arterial Blood Gas Oxygen Sat 98.3 mmHG (95.0-98.0); Arterial COHb 0.1 % (0.0-3.0); Arterial Fraction of Oxyhgb 97.8 % (93.0-99.0); Arterial HCO3 26.2 mmol/L (22.0-26.0); Arterial MetHb 0.4 % (0.0-1.5); Arterial pCO2 34.5 mmhg (35-45); MODE VENT - AC; Site LB
[2019-01-05] MEDS: FENTAnyl (DRIP) 1000 mcg/100mL 100 ML IV (20:44)
[2019-01-05] MEDS ORDERED: MIDAZOLAM (DRIP) 50 mg/50 mL 50 ML IV (21:30)
[2019-01-05] MEDS: QUETIAPINE 25 MG TAB GTB (21:43)
[2019-01-05] MEDS: GABAPENTIN 100 MG CAP PO (21:44)
[2019-01-05] MEDS: ATORVASTATIN 40 MG TAB NGT (21:44)
[2019-01-05] MEDS: MIDAZOLAM (DRIP) 50 mg/50 mL 50 ML IV (22:04)
[2019-01-06] MEDS: INSULIN ASPART [NOVOLOG] 3 ML PEN SC ×6 (00:44→21:00)
[2019-01-06] MEDS: METOCLOPRAMIDE 10 MG INJ IV ×4 (00:45→17:14)
[2019-01-06] MEDS: IPRATROPIUM (HFA) 12.9 GM INHALER INH ×4 (01:22→20:36)
[2019-01-06] MEDS: ALBUTEROL HFA 8 GM INHALER INH ×4 (01:22→20:37)
[2019-01-06] MEDS: LANSOPRAZOLE 30 MG CAP GTB ×2 (05:06→17:08)
[2019-01-06] MEDS: metroNIDAZOLE 500 MG/NS (PMX) 100 ML IVPB ×3 (05:06→21:32)
[2019-01-06 05:15] LABS: ADD MAN DIFF? NO
[2019-01-06 05:20] LABS: WHITE BLOOD COUNT 10.3 10^3/ul (4.8-10.8)
[2019-01-06 05:20] LABS: BASOPHIL # 0.1 10^3/ul (0.0-0.1); BASOPHILS % 0.7 % (0.0-2.0); EOSINOPHILS # 0.3 10^3/ul (0.0-0.5); HEMATOCRIT 28.6 % (42.0-52.0); LYMPHOCYTES # 1.5 10^3/ul (0.8-2.9); LYMPHOCYTES % 14.1 % (15.0-51.0); MEAN CORPUSCULAR HEMOGLOBIN 28.5 pg (29.0-33.0); MEAN CORPUSCULAR HGB CONC 31.5 g/dl (32.0-37.0); MEAN CORPUSCULAR VOLUME 90.5 fl (82.0-101.0); MEAN PLATELET VOLUME 10.3 fl (7.4-10.4); MONOCYTE # 0.6 10^3/ul (0.3-0.9); MONOCYTES % 5.9 % (0.0-11.0); NEUTROPHIL # 7.8 10^3/ul (1.6-7.5); PLATELET COUNT 285 10^3/UL (140-415); RED BLOOD COUNT 3.16 10^6/ul (4.70-6.10)
[2019-01-06 05:50] LABS: ALBUMIN 3.1 g/dl (3.3-4.9); ANION GAP 9 (5-13); BLOOD UREA NITROGEN 12 mg/dl (7-20); CALCIUM 9.1 mg/dl (8.4-10.2); CARBON DIOXIDE 26 mmol/L (21-31); CHLORIDE 106 mmol/L (97-110); CREATININE 3.53 mg/dl (0.61-1.24); GLUCOSE 101 mg/dl (70-220); PHOSPHORUS 2.6 mg/dl (2.5-4.9); POTASSIUM 3.4 mmol/L (3.5-5.1); SODIUM 141 mmol/L (135-144)
[2019-01-06 07:16] LABS: AADO2 Arterial 222.4 mmHg (7.0-24.0); Arterial Base Excess 2.3 mmol/L (-3.0-3); Arterial Blood Gas Oxygen Sat 96.4 mmHG (95.0-98.0); Arterial COHb 0.3 % (0.0-3.0); Arterial Fraction of Oxyhgb 95.7 % (93.0-99.0); Arterial HCO3 26.7 mmol/L (22.0-26.0); Arterial MetHb 0.4 % (0.0-1.5); MODE VENT - AC; Site Right Brachial
[2019-01-06] MEDS: LACTOBACILLUS RHAMNOSUS CAP GTB ×3 (08:37→20:56)
[2019-01-06] MEDS: CLOPIDOGREL 75 MG TAB GTB (08:38)
[2019-01-06] MEDS: BACLOFEN 10 MG TAB GTB ×2 (08:38→20:56)
[2019-01-06] MEDS: LOSARTAN 25 MG TAB PO (08:38)
[2019-01-06] MEDS: MULTIVIT/CA CARB/B CMPLX/FA TAB GTB (08:38)
[2019-01-06] MEDS: DOXAZOSIN 2 MG TAB NGT (08:38)
[2019-01-06] MEDS: INSULIN GLARGINE [LANTus] (100 UNITS/ML) SYG SC (08:50)
[2019-01-06] MEDS: MUPIROCIN 2% 22 GM OINT TOP ×2 (08:50→20:57)
[2019-01-06] MEDS: BUDESONIDE (NEB) 0.5MG/2ML AMP HHN ×2 (09:44→20:36)
[2019-01-06] MEDS: MIDAZOLAM (DRIP) 50 mg/50 mL 50 ML IV (11:54)
[2019-01-06] MEDS: FENTAnyl (DRIP) 1000 mcg/100mL 100 ML IV (11:54)
[2019-01-06] MEDS: hydrALAzine 20 MG INJ IV (14:27)
[2019-01-06] MEDS: BALSAM PERU/CASTOR OIL 60 GM TUBE TOP (16:13)
[2019-01-06] MEDS: ATORVASTATIN 40 MG TAB NGT (20:55)
[2019-01-06] MEDS: GABAPENTIN 100 MG CAP PO (20:55)
[2019-01-06] MEDS: QUETIAPINE 25 MG TAB GTB (20:55)
[2019-01-06] MEDS: NORepinephrine 8MG/250 ML (PMX 250 ML IV (21:28)
[2019-01-07] MEDS: METOCLOPRAMIDE 10 MG INJ IV ×4 (00:42→17:33)
[2019-01-07] MEDS: INSULIN ASPART [NOVOLOG] 3 ML PEN SC ×6 (00:48→20:35)
[2019-01-07] MEDS: MIDAZOLAM (DRIP) 50 mg/50 mL 50 ML IV ×2 (01:47→19:34)
[2019-01-07] MEDS: IPRATROPIUM (HFA) 12.9 GM INHALER INH ×4 (01:57→20:48)
[2019-01-07] MEDS: ALBUTEROL HFA 8 GM INHALER INH ×4 (01:57→20:48)
[2019-01-07 04:46] LABS: ADD MAN DIFF? NO; BASOPHIL # 0.1 10^3/ul (0.0-0.1); BASOPHILS % 0.7 % (0.0-2.0); EOSINOPHILS # 0.4 10^3/ul (0.0-0.5); HEMATOCRIT 28.2 % (42.0-52.0); HEMOGLOBIN 8.7 g/dl (14.0-18.0); LYMPHOCYTES # 1.1 10^3/ul (0.8-2.9); LYMPHOCYTES % 11.1 % (15.0-51.0); MEAN CORPUSCULAR HEMOGLOBIN 28.4 pg (29.0-33.0); MEAN CORPUSCULAR HGB CONC 30.9 g/dl (32.0-37.0); MEAN CORPUSCULAR VOLUME 92.2 fl (82.0-101.0); MEAN PLATELET VOLUME 10.3 fl (7.4-10.4); MONOCYTE # 0.6 10^3/ul (0.3-0.9); MONOCYTES % 6.1 % (0.0-11.0); NEUTROPHIL # 7.5 10^3/ul (1.6-7.5); NEUTROPHILS % 77.2 % (39.0-77.0); PLATELET COUNT 293 10^3/UL (140-415); RED BLOOD COUNT 3.06 10^6/ul (4.70-6.10); RED CELL DISTRIBUTION WIDTH 17.2 % (11.5-14.5)
[2019-01-07 04:46] LABS: WHITE BLOOD COUNT 9.7 10^3/ul (4.8-10.8)
[2019-01-07 05:14] LABS: ANION GAP 9 (5-13); BLOOD UREA NITROGEN 20 mg/dl (7-20); CALCIUM 9.5 mg/dl (8.4-10.2); CARBON DIOXIDE 27 mmol/L (21-31); CHLORIDE 104 mmol/L (97-110); CREATININE 4.88 mg/dl (0.61-1.24); GLUCOSE 140 mg/dl (70-220); MAGNESIUM 2.1 mg/dl (1.7-2.5); PHOSPHORUS 3.3 mg/dl (2.5-4.9); POTASSIUM 3.4 mmol/L (3.5-5.1); SODIUM 140 mmol/L (135-144)
[2019-01-07] MEDS: metroNIDAZOLE 500 MG/NS (PMX) 100 ML IVPB ×3 (05:28→22:44)
[2019-01-07] MEDS: LANSOPRAZOLE 30 MG CAP GTB ×2 (05:28→17:33)
[2019-01-07] MEDS: LACTOBACILLUS RHAMNOSUS CAP GTB ×4 (09:00→20:31)
[2019-01-07] MEDS: BUDESONIDE (NEB) 0.5MG/2ML AMP HHN ×2 (09:29→20:48)
[2019-01-07] MEDS: MULTIVIT/CA CARB/B CMPLX/FA TAB GTB (09:48)
[2019-01-07] MEDS: INSULIN GLARGINE [LANTus] (100 UNITS/ML) SYG SC (09:48)
[2019-01-07] MEDS: ASPIRIN 81 MG TAB PO (09:48)
[2019-01-07] MEDS: CLOPIDOGREL 75 MG TAB GTB (09:49)
[2019-01-07] MEDS: BACLOFEN 10 MG TAB GTB ×2 (09:49→20:31)
[2019-01-07] MEDS: BALSAM PERU/CASTOR OIL 60 GM TUBE TOP (09:50)
[2019-01-07] MEDS: FENTAnyl (DRIP) 1000 mcg/100mL 100 ML IV (10:10)
[2019-01-07] MEDS: ALBUMIN HUMAN 25% 100 ML IV (10:18)
[2019-01-07] MEDS: MUPIROCIN 2% 22 GM OINT TOP ×2 (12:28→20:32)
[2019-01-07] MEDS: HEPARIN 1000 UNITS/ML 10 ML INJ CATHETER (12:56)
[2019-01-07] MEDS: DOXAZOSIN 2 MG TAB NGT (14:51)
[2019-01-07] MEDS: LOSARTAN 25 MG TAB PO (14:52)
[2019-01-07] MEDS: EPOETIN ALFA-EPBX (ESRD) 10,000 UNIT/ML VIAL SC (16:10)
[2019-01-07] MEDS: ATORVASTATIN 40 MG TAB NGT (20:31)
[2019-01-07] MEDS: GABAPENTIN 100 MG CAP PO (20:31)
[2019-01-07] MEDS: QUETIAPINE 25 MG TAB GTB (20:32)
[2019-01-07] MEDS: LABETALOL HCL 20MG INJ IV (21:36)
[2019-01-08] MEDS: METOCLOPRAMIDE 10 MG INJ IV ×5 (01:20→23:57)
[2019-01-08] MEDS: INSULIN ASPART [NOVOLOG] 3 ML PEN SC ×6 (01:27→20:54)
[2019-01-08] MEDS: ALBUTEROL HFA 8 GM INHALER INH ×4 (01:51→19:21)
[2019-01-08] MEDS: IPRATROPIUM (HFA) 12.9 GM INHALER INH ×4 (01:51→19:21)
[2019-01-08 05:12] LABS: ADD MAN DIFF? NO
[2019-01-08 05:19] LABS: BASOPHIL # 0.1 10^3/ul (0.0-0.1); BASOPHILS % 0.8 % (0.0-2.0); EOSINOPHILS # 0.4 10^3/ul (0.0-0.5); EOSINOPHILS % 3.4 % (0.0-7.0); HEMATOCRIT 30.6 % (42.0-52.0); HEMOGLOBIN 9.4 g/dl (14.0-18.0); LYMPHOCYTES # 1.2 10^3/ul (0.8-2.9); LYMPHOCYTES % 11.8 % (15.0-51.0); MEAN CORPUSCULAR HEMOGLOBIN 28.7 pg (29.0-33.0); MEAN CORPUSCULAR HGB CONC 30.7 g/dl (32.0-37.0); MEAN CORPUSCULAR VOLUME 93.3 fl (82.0-101.0); MEAN PLATELET VOLUME 10.4 fl (7.4-10.4); MONOCYTE # 0.7 10^3/ul (0.3-0.9); MONOCYTES % 6.8 % (0.0-11.0); NEUTROPHILS % 76.4 % (39.0-77.0); PLATELET COUNT 330 10^3/UL (140-415); RED BLOOD COUNT 3.28 10^6/ul (4.70-6.10); RED CELL DISTRIBUTION WIDTH 17.1 % (11.5-14.5)
[2019-01-08 05:19] LABS: WHITE BLOOD COUNT 10.5 10^3/ul (4.8-10.8)
[2019-01-08] MEDS: LANSOPRAZOLE 30 MG CAP GTB ×2 (05:39→17:28)
[2019-01-08] MEDS: metroNIDAZOLE 500 MG/NS (PMX) 100 ML IVPB (05:40)
[2019-01-08 06:14] LABS: ALBUMIN 3.4 g/dl (3.3-4.9); ANION GAP 8 (5-13); BLOOD UREA NITROGEN 15 mg/dl (7-20); CALCIUM 9.6 mg/dl (8.4-10.2); CARBON DIOXIDE 30 mmol/L (21-31); CHLORIDE 101 mmol/L (97-110); CREATININE 3.48 mg/dl (0.61-1.24); GLUCOSE 260 mg/dl (70-220); MAGNESIUM 2.1 mg/dl (1.7-2.5); PHOSPHORUS 2.3 mg/dl (2.5-4.9); POTASSIUM 3.5 mmol/L (3.5-5.1); SODIUM 139 mmol/L (135-144)
[2019-01-08] MEDS: ASPIRIN 81 MG TAB PO (09:09)
[2019-01-08] MEDS: BACLOFEN 10 MG TAB GTB ×2 (09:09→20:53)
[2019-01-08] MEDS: DOXAZOSIN 2 MG TAB NGT (09:09)
[2019-01-08] MEDS: CLOPIDOGREL 75 MG TAB GTB (09:09)
[2019-01-08] MEDS: LACTOBACILLUS RHAMNOSUS CAP GTB ×3 (09:09→20:53)
[2019-01-08] MEDS: LOSARTAN 25 MG TAB PO (09:09)
[2019-01-08] MEDS: MULTIVIT/CA CARB/B CMPLX/FA TAB GTB (09:10)
[2019-01-08] MEDS: MUPIROCIN 2% 22 GM OINT TOP ×2 (09:10→20:58)
[2019-01-08] MEDS: BALSAM PERU/CASTOR OIL 60 GM TUBE TOP (09:10)
[2019-01-08] MEDS: INSULIN GLARGINE [LANTus] (100 UNITS/ML) SYG SC (09:12)
[2019-01-08] MEDS: BUDESONIDE (NEB) 0.5MG/2ML AMP HHN ×2 (10:10→19:21)
[2019-01-08] MEDS: MIDAZOLAM (DRIP) 50 mg/50 mL 50 ML IV ×2 (11:32→22:27)
[2019-01-08] MEDS: ALBUMIN HUMAN 25% 100 ML IV (14:37)
[2019-01-08] MEDS: HEPARIN 1000 UNITS/ML 10 ML INJ CATHETER (17:16)
[2019-01-08] MEDS: ATORVASTATIN 40 MG TAB NGT (20:53)
[2019-01-08] MEDS: QUETIAPINE 25 MG TAB GTB (20:53)
[2019-01-08] MEDS: GABAPENTIN 100 MG CAP PO (20:53)
[2019-01-08] MEDS: LABETALOL HCL 20MG INJ IV ×2 (21:32→23:58)
[2019-01-08] MEDS: DOCUSATE SODIUM 10 MG/ML (10ML CUP) PEG (23:48)
[2019-01-09] MEDS ORDERED: NITROGLYCERIN 50 MG/D5W (PMX) 250 ML (00:19)
[2019-01-09] MEDS: NITROGLYCERIN 50 MG/D5W (PMX) 250 ML IV (00:24)
[2019-01-09] MEDS ORDERED: NITROGLYCERIN 50 MG/D5W (PMX) 250 ML IV (00:30)
[2019-01-09] MEDS: IPRATROPIUM (HFA) 12.9 GM INHALER INH ×4 (01:09→19:32)
[2019-01-09] MEDS: ALBUTEROL HFA 8 GM INHALER INH ×4 (01:09→19:32)
[2019-01-09] MEDS: INSULIN ASPART [NOVOLOG] 3 ML PEN SC ×6 (01:21→21:19)
[2019-01-09] MEDS: FENTAnyl (DRIP) 1000 mcg/100mL 100 ML IV (02:38)
[2019-01-09 05:07] LABS: ADD MAN DIFF? NO
[2019-01-09 05:25] LABS: WHITE BLOOD COUNT 11.5 10^3/ul (4.8-10.8)
[2019-01-09 05:25] LABS: BASOPHIL # 0.1 10^3/ul (0.0-0.1); BASOPHILS % 0.5 % (0.0-2.0); EOSINOPHILS # 0.1 10^3/ul (0.0-0.5); EOSINOPHILS % 0.8 % (0.0-7.0); HEMATOCRIT 30.6 % (42.0-52.0); HEMOGLOBIN 9.6 g/dl (14.0-18.0); LYMPHOCYTES % 8.7 % (15.0-51.0); MEAN CORPUSCULAR HEMOGLOBIN 29.3 pg (29.0-33.0); MEAN CORPUSCULAR HGB CONC 31.4 g/dl (32.0-37.0); MEAN CORPUSCULAR VOLUME 93.3 fl (82.0-101.0); MEAN PLATELET VOLUME 10.4 fl (7.4-10.4); MONOCYTE # 0.6 10^3/ul (0.3-0.9); MONOCYTES % 4.8 % (0.0-11.0); NEUTROPHIL # 9.7 10^3/ul (1.6-7.5); NEUTROPHILS % 84.2 % (39.0-77.0); PLATELET COUNT 393 10^3/UL (140-415); RED BLOOD COUNT 3.28 10^6/ul (4.70-6.10); RED CELL DISTRIBUTION WIDTH 17.4 % (11.5-14.5)
[2019-01-09 05:47] LABS: ALBUMIN 3.8 g/dl (3.3-4.9); ANION GAP 11 (5-13); BLOOD UREA NITROGEN 14 mg/dl (7-20); CALCIUM 9.7 mg/dl (8.4-10.2); CARBON DIOXIDE 28 mmol/L (21-31); CHLORIDE 97 mmol/L (97-110); CREATININE 2.99 mg/dl (0.61-1.24); GLUCOSE 207 mg/dl (70-220); MAGNESIUM 1.9 mg/dl (1.7-2.5); PHOSPHORUS 3.5 mg/dl (2.5-4.9); POTASSIUM 4.4 mmol/L (3.5-5.1); SODIUM 136 mmol/L (135-144)
[2019-01-09] MEDS: METOCLOPRAMIDE 10 MG INJ IV ×4 (06:13→23:45)
[2019-01-09] MEDS: LANSOPRAZOLE 30 MG CAP GTB ×2 (06:14→17:30)
[2019-01-09] MEDS: MIDAZOLAM (DRIP) 50 mg/50 mL 50 ML IV (07:50)
[2019-01-09] MEDS: BUDESONIDE (NEB) 0.5MG/2ML AMP HHN ×2 (08:21→19:32)
[2019-01-09] MEDS: INSULIN GLARGINE [LANTus] (100 UNITS/ML) SYG SC (09:22)
[2019-01-09] MEDS: MULTIVIT/CA CARB/B CMPLX/FA TAB GTB (10:00)
[2019-01-09] MEDS: LACTOBACILLUS RHAMNOSUS CAP GTB ×3 (10:01→21:09)
[2019-01-09] MEDS: LOSARTAN 25 MG TAB PO (10:01)
[2019-01-09] MEDS: DOXAZOSIN 2 MG TAB NGT (10:01)
[2019-01-09] MEDS: ASPIRIN 81 MG TAB PO (10:02)
[2019-01-09] MEDS: POLYETHYLENE GLYCOL 17 GM PACKET PEG (10:02)
[2019-01-09] MEDS: CLOPIDOGREL 75 MG TAB GTB (10:02)
[2019-01-09] MEDS: BACLOFEN 10 MG TAB GTB ×2 (10:02→21:09)
[2019-01-09] MEDS: DOCUSATE SODIUM 10 MG/ML (10ML CUP) PEG ×2 (10:02→21:00)
[2019-01-09] MEDS: MUPIROCIN 2% 22 GM OINT TOP ×2 (10:03→21:10)
[2019-01-09] MEDS: BALSAM PERU/CASTOR OIL 60 GM TUBE TOP (10:03)
[2019-01-09] MEDS ORDERED: PENDING SANTYL ORDER FOR WOUND CARE XX (18:00)
[2019-01-09] MEDS: QUETIAPINE 25 MG TAB GTB (21:09)
[2019-01-09] MEDS: GABAPENTIN 100 MG CAP PO (21:09)
[2019-01-09] MEDS: ATORVASTATIN 40 MG TAB NGT (21:09)
[2019-01-10] MEDS: ALBUTEROL HFA 8 GM INHALER INH ×4 (01:08→21:19)
[2019-01-10] MEDS: IPRATROPIUM (HFA) 12.9 GM INHALER INH ×4 (01:08→21:19)
[2019-01-10] MEDS: INSULIN ASPART [NOVOLOG] 3 ML PEN SC ×6 (01:23→20:26)
[2019-01-10] MEDS: MIDAZOLAM (DRIP) 50 mg/50 mL 50 ML IV ×2 (02:18→08:40)
[2019-01-10 05:26] LABS: ADD MAN DIFF? NO
[2019-01-10 05:32] LABS: BASOPHIL # 0.1 10^3/ul (0.0-0.1); BASOPHILS % 0.8 % (0.0-2.0); EOSINOPHILS # 0.4 10^3/ul (0.0-0.5); EOSINOPHILS % 5.1 % (0.0-7.0); HEMATOCRIT 31.4 % (42.0-52.0); HEMOGLOBIN 9.6 g/dl (14.0-18.0); LYMPHOCYTES # 1.2 10^3/ul (0.8-2.9); LYMPHOCYTES % 14.7 % (15.0-51.0); MEAN CORPUSCULAR HEMOGLOBIN 28.7 pg (29.0-33.0); MEAN CORPUSCULAR HGB CONC 30.6 g/dl (32.0-37.0); MEAN PLATELET VOLUME 10.4 fl (7.4-10.4); MONOCYTE # 0.6 10^3/ul (0.3-0.9); NEUTROPHIL # 6.1 10^3/ul (1.6-7.5); NEUTROPHILS % 71.7 % (39.0-77.0); PLATELET COUNT 377 10^3/UL (140-415); RED BLOOD COUNT 3.34 10^6/ul (4.70-6.10); RED CELL DISTRIBUTION WIDTH 17.8 % (11.5-14.5)
[2019-01-10 05:32] LABS: WHITE BLOOD COUNT 8.5 10^3/ul (4.8-10.8)
[2019-01-10] MEDS: METOCLOPRAMIDE 10 MG INJ IV ×3 (06:00→17:07)
[2019-01-10 06:13] LABS: ALBUMIN 3.5 g/dl (3.3-4.9); ANION GAP 11 (5-13); BLOOD UREA NITROGEN 25 mg/dl (7-20); CARBON DIOXIDE 28 mmol/L (21-31); CHLORIDE 98 mmol/L (97-110); CREATININE 4.48 mg/dl (0.61-1.24); GLUCOSE 179 mg/dl (70-220); MAGNESIUM 2.2 mg/dl (1.7-2.5); PHOSPHORUS 3.4 mg/dl (2.5-4.9); POTASSIUM 3.8 mmol/L (3.5-5.1); SODIUM 137 mmol/L (135-144)
[2019-01-10] MEDS: LANSOPRAZOLE 30 MG CAP GTB ×2 (06:45→17:07)
[2019-01-10] MEDS: BALSAM PERU/CASTOR OIL 60 GM TUBE TOP (08:17)
[2019-01-10] MEDS: MUPIROCIN 2% 22 GM OINT TOP ×2 (08:17→20:19)
[2019-01-10] MEDS: POLYETHYLENE GLYCOL 17 GM PACKET PEG (08:19)
[2019-01-10] MEDS: DOCUSATE SODIUM 10 MG/ML (10ML CUP) PEG ×2 (08:20→20:20)
[2019-01-10] MEDS: INSULIN GLARGINE [LANTus] (100 UNITS/ML) SYG SC (08:26)
[2019-01-10] MEDS: ALBUMIN HUMAN 25% 100 ML IV (10:02)
[2019-01-10] MEDS: NORepinephrine 8MG/250 ML (PMX 250 ML IV (10:21)
[2019-01-10] MEDS: BUDESONIDE (NEB) 0.5MG/2ML AMP HHN ×2 (11:08→21:19)
[2019-01-10] MEDS: LACTOBACILLUS RHAMNOSUS CAP GTB ×3 (13:00→20:18)
[2019-01-10] MEDS: HEPARIN 1000 UNITS/ML 10 ML INJ CATHETER (13:12)
[2019-01-10] MEDS: CLOPIDOGREL 75 MG TAB GTB (13:19)
[2019-01-10] MEDS: ASPIRIN 81 MG TAB PO (13:20)
[2019-01-10] MEDS: LOSARTAN 25 MG TAB PO ×2 (13:20→14:17)
[2019-01-10] MEDS: MULTIVIT/CA CARB/B CMPLX/FA TAB GTB (13:20)
[2019-01-10] MEDS: DOXAZOSIN 2 MG TAB NGT ×2 (13:21→14:17)
[2019-01-10] MEDS: BACLOFEN 10 MG TAB GTB ×2 (13:21→20:18)
[2019-01-10] MEDS: EPOETIN ALFA-EPBX (ESRD) 10,000 UNIT/ML VIAL SC (17:10)
[2019-01-10] MEDS: GABAPENTIN 100 MG CAP PO (20:18)
[2019-01-10] MEDS: ATORVASTATIN 40 MG TAB NGT (20:18)
[2019-01-10] MEDS: QUETIAPINE 25 MG TAB GTB (20:18)
[2019-01-11] MEDS: METOCLOPRAMIDE 10 MG INJ IV ×4 (00:16→18:18)
[2019-01-11] MEDS: INSULIN ASPART [NOVOLOG] 3 ML PEN SC ×6 (00:17→21:44)
[2019-01-11] MEDS: ALBUTEROL HFA 8 GM INHALER INH ×4 (01:11→19:28)
[2019-01-11] MEDS: IPRATROPIUM (HFA) 12.9 GM INHALER INH ×4 (01:11→19:28)
[2019-01-11 05:08] LABS: ADD MAN DIFF? NO
[2019-01-11 05:12] LABS: WHITE BLOOD COUNT 12.9 10^3/ul (4.8-10.8)
[2019-01-11 05:12] LABS: BASOPHIL # 0.1 10^3/ul (0.0-0.1); BASOPHILS % 0.6 % (0.0-2.0); EOSINOPHILS # 0.2 10^3/ul (0.0-0.5); EOSINOPHILS % 1.7 % (0.0-7.0); HEMATOCRIT 35.5 % (42.0-52.0); HEMOGLOBIN 10.8 g/dl (14.0-18.0); LYMPHOCYTES # 1.4 10^3/ul (0.8-2.9); LYMPHOCYTES % 10.5 % (15.0-51.0); MEAN CORPUSCULAR HEMOGLOBIN 28.6 pg (29.0-33.0); MEAN CORPUSCULAR HGB CONC 30.4 g/dl (32.0-37.0); MEAN CORPUSCULAR VOLUME 93.9 fl (82.0-101.0); MEAN PLATELET VOLUME 10.6 fl (7.4-10.4); MONOCYTES % 7.9 % (0.0-11.0); NEUTROPHIL # 10.1 10^3/ul (1.6-7.5); NEUTROPHILS % 78.7 % (39.0-77.0); PLATELET COUNT 503 10^3/UL (140-415); RED BLOOD COUNT 3.78 10^6/ul (4.70-6.10); RED CELL DISTRIBUTION WIDTH 18.7 % (11.5-14.5)
[2019-01-11] MEDS: LANSOPRAZOLE 30 MG CAP GTB ×2 (05:23→18:00)
[2019-01-11 06:00] LABS: ALBUMIN 4.3 g/dl (3.3-4.9); ANION GAP 15 (5-13); BLOOD UREA NITROGEN 17 mg/dl (7-20); CALCIUM 10.3 mg/dl (8.4-10.2); CARBON DIOXIDE 26 mmol/L (21-31); CHLORIDE 102 mmol/L (97-110); CREATININE 3.63 mg/dl (0.61-1.24); GLUCOSE 180 mg/dl (70-220); MAGNESIUM 2.2 mg/dl (1.7-2.5); PHOSPHORUS 2.7 mg/dl (2.5-4.9); POTASSIUM 4.1 mmol/L (3.5-5.1); SODIUM 143 mmol/L (135-144)
[2019-01-11] MEDS: MIDAZOLAM (DRIP) 50 mg/50 mL 50 ML IV ×2 (06:30→15:33)
[2019-01-11] MEDS: BUDESONIDE (NEB) 0.5MG/2ML AMP HHN ×2 (08:06→19:28)
[2019-01-11] MEDS: DOXAZOSIN 2 MG TAB NGT (09:00)
[2019-01-11] MEDS: DOCUSATE SODIUM 10 MG/ML (10ML CUP) PEG ×2 (09:17→21:33)
[2019-01-11] MEDS: POLYETHYLENE GLYCOL 17 GM PACKET PEG (09:17)
[2019-01-11] MEDS: ASPIRIN 81 MG TAB PO (09:17)
[2019-01-11] MEDS: BACLOFEN 10 MG TAB GTB ×2 (09:18→21:33)
[2019-01-11] MEDS: LACTOBACILLUS RHAMNOSUS CAP GTB ×3 (09:18→21:33)
[2019-01-11] MEDS: CLOPIDOGREL 75 MG TAB GTB (09:18)
[2019-01-11] MEDS: MULTIVIT/CA CARB/B CMPLX/FA TAB GTB (09:18)
[2019-01-11] MEDS: LOSARTAN 25 MG TAB PO (09:19)
[2019-01-11] MEDS: BALSAM PERU/CASTOR OIL 60 GM TUBE TOP (09:22)
[2019-01-11] MEDS: MUPIROCIN 2% 22 GM OINT TOP ×2 (09:22→21:53)
[2019-01-11] MEDS: INSULIN GLARGINE [LANTus] (100 UNITS/ML) SYG SC (10:11)
[2019-01-11] MEDS: NORepinephrine 8MG/250 ML (PMX 250 ML IV (13:46)
[2019-01-11] MEDS: ATORVASTATIN 40 MG TAB NGT (21:33)
[2019-01-11] MEDS: GABAPENTIN 100 MG CAP PO (21:33)
[2019-01-11] MEDS: QUETIAPINE 25 MG TAB GTB (21:40)
[2019-01-12] MEDS: METOCLOPRAMIDE 10 MG INJ IV ×5 (00:51→23:46)
[2019-01-12] MEDS: ALBUTEROL HFA 8 GM INHALER INH ×4 (01:16→19:50)
[2019-01-12] MEDS: IPRATROPIUM (HFA) 12.9 GM INHALER INH ×4 (01:16→19:50)
[2019-01-12] MEDS: INSULIN ASPART [NOVOLOG] 3 ML PEN SC ×6 (01:22→20:30)
[2019-01-12] MEDS: MIDAZOLAM (DRIP) 50 mg/50 mL 50 ML IV ×2 (02:31→15:13)
[2019-01-12 05:08] LABS: ADD MAN DIFF? NO
[2019-01-12 05:13] LABS: WHITE BLOOD COUNT 13.5 10^3/ul (4.8-10.8)
[2019-01-12 05:13] LABS: BASOPHIL # 0.1 10^3/ul (0.0-0.1); BASOPHILS % 0.7 % (0.0-2.0); EOSINOPHILS # 0.3 10^3/ul (0.0-0.5); HEMATOCRIT 33.5 % (42.0-52.0); HEMOGLOBIN 10.2 g/dl (14.0-18.0); LYMPHOCYTES # 1.1 10^3/ul (0.8-2.9); LYMPHOCYTES % 8.2 % (15.0-51.0); MEAN CORPUSCULAR HEMOGLOBIN 29.2 pg (29.0-33.0); MEAN CORPUSCULAR HGB CONC 30.4 g/dl (32.0-37.0); MEAN PLATELET VOLUME 10.8 fl (7.4-10.4); MONOCYTE # 1.1 10^3/ul (0.3-0.9); NEUTROPHIL # 10.8 10^3/ul (1.6-7.5); NEUTROPHILS % 80.2 % (39.0-77.0); PLATELET COUNT 466 10^3/UL (140-415); RED BLOOD COUNT 3.49 10^6/ul (4.70-6.10)
[2019-01-12 05:37] LABS: ANION GAP 13 (5-13); BLOOD UREA NITROGEN 28 mg/dl (7-20); CALCIUM 10.5 mg/dl (8.4-10.2); CARBON DIOXIDE 27 mmol/L (21-31); CHLORIDE 100 mmol/L (97-110); CREATININE 5.43 mg/dl (0.61-1.24); GLUCOSE 351 mg/dl (70-220); MAGNESIUM 2.3 mg/dl (1.7-2.5); PHOSPHORUS 3.2 mg/dl (2.5-4.9); POTASSIUM 3.6 mmol/L (3.5-5.1); SODIUM 140 mmol/L (135-144)
[2019-01-12] MEDS: LANSOPRAZOLE 30 MG CAP GTB ×2 (05:49→18:20)
[2019-01-12] MEDS: BUDESONIDE (NEB) 0.5MG/2ML AMP HHN ×2 (07:53→19:49)
[2019-01-12] MEDS: LACTOBACILLUS RHAMNOSUS CAP GTB ×3 (08:38→22:17)
[2019-01-12] MEDS: ASPIRIN 81 MG TAB PO (08:38)
[2019-01-12] MEDS: MULTIVIT/CA CARB/B CMPLX/FA TAB GTB (08:38)
[2019-01-12] MEDS: CLOPIDOGREL 75 MG TAB GTB (08:38)
[2019-01-12] MEDS: DOCUSATE SODIUM 10 MG/ML (10ML CUP) PEG ×2 (08:38→20:26)
[2019-01-12] MEDS: BACLOFEN 10 MG TAB GTB ×2 (08:38→20:27)
[2019-01-12] MEDS: POLYETHYLENE GLYCOL 17 GM PACKET PEG (08:38)
[2019-01-12] MEDS: DOXAZOSIN 2 MG TAB NGT (08:47)
[2019-01-12] MEDS: INSULIN GLARGINE [LANTus] (100 UNITS/ML) SYG SC (08:47)
[2019-01-12] MEDS: BALSAM PERU/CASTOR OIL 60 GM TUBE TOP (08:48)
[2019-01-12] MEDS: LOSARTAN 25 MG TAB PO (08:48)
[2019-01-12] MEDS: MUPIROCIN 2% 22 GM OINT TOP ×2 (08:49→20:36)
[2019-01-12] MEDS: ALBUMIN HUMAN 25% 100 ML IV (10:37)
[2019-01-12] MEDS: HEPARIN 1000 UNITS/ML 10 ML INJ CATHETER (13:20)
[2019-01-12] MEDS: EPOETIN ALFA-EPBX (ESRD) 10,000 UNIT/ML VIAL SC (18:07)
[2019-01-12] MEDS: QUETIAPINE 25 MG TAB GTB (20:27)
[2019-01-12] MEDS: GABAPENTIN 100 MG CAP PO (20:27)
[2019-01-12] MEDS: ATORVASTATIN 40 MG TAB NGT (20:27)
[2019-01-13] MEDS: ALBUTEROL HFA 8 GM INHALER INH ×4 (01:30→20:45)
[2019-01-13] MEDS: MIDAZOLAM (DRIP) 50 mg/50 mL 50 ML IV ×2 (01:36→13:08)
[2019-01-13] MEDS: INSULIN ASPART [NOVOLOG] 3 ML PEN SC ×7 (01:42→23:50)
[2019-01-13] MEDS: IPRATROPIUM (HFA) 12.9 GM INHALER INH ×4 (02:10→20:45)
[2019-01-13] MEDS: LANSOPRAZOLE 30 MG CAP GTB ×2 (05:01→17:10)
[2019-01-13] MEDS: METOCLOPRAMIDE 10 MG INJ IV ×4 (06:01→23:43)
[2019-01-13] MEDS: NORepinephrine 8MG/250 ML (PMX 250 ML IV (06:02)
[2019-01-13] MEDS: LOSARTAN 25 MG TAB PO (09:00)
[2019-01-13] MEDS: DOXAZOSIN 2 MG TAB NGT (09:00)
[2019-01-13] MEDS: POLYETHYLENE GLYCOL 17 GM PACKET PEG (10:31)
[2019-01-13] MEDS: DOCUSATE SODIUM 10 MG/ML (10ML CUP) PEG ×2 (10:31→21:11)
[2019-01-13] MEDS: INSULIN GLARGINE [LANTus] (100 UNITS/ML) SYG SC ×2 (10:31→12:15)
[2019-01-13] MEDS: BACLOFEN 10 MG TAB GTB ×2 (10:32→21:12)
[2019-01-13] MEDS: BALSAM PERU/CASTOR OIL 60 GM TUBE TOP (10:32)
[2019-01-13] MEDS: ASPIRIN 81 MG TAB PO (10:32)
[2019-01-13] MEDS: MULTIVIT/CA CARB/B CMPLX/FA TAB GTB (10:32)
[2019-01-13] MEDS: LACTOBACILLUS RHAMNOSUS CAP GTB ×3 (10:32→21:11)
[2019-01-13] MEDS: CLOPIDOGREL 75 MG TAB GTB (10:32)
[2019-01-13] MEDS: MUPIROCIN 2% 22 GM OINT TOP ×2 (10:33→21:12)
[2019-01-13] MEDS: BUDESONIDE (NEB) 0.5MG/2ML AMP HHN ×2 (14:02→20:45)
[2019-01-13] MEDS: GABAPENTIN 100 MG CAP PO (21:11)
[2019-01-13] MEDS: QUETIAPINE 25 MG TAB GTB (21:11)
[2019-01-13] MEDS: ATORVASTATIN 40 MG TAB NGT (21:11)
[2019-01-14] MEDS: ALBUTEROL HFA 8 GM INHALER INH ×4 (02:50→19:30)
[2019-01-14] MEDS: IPRATROPIUM (HFA) 12.9 GM INHALER INH ×4 (02:50→19:30)
[2019-01-14] MEDS: INSULIN ASPART [NOVOLOG] 3 ML PEN SC ×5 (04:05→20:52)
[2019-01-14] MEDS: LANSOPRAZOLE 30 MG CAP GTB ×2 (05:22→17:38)
[2019-01-14 05:23] LABS: ADD MAN DIFF? NO
[2019-01-14] MEDS: METOCLOPRAMIDE 10 MG INJ IV ×3 (05:24→17:37)
[2019-01-14 05:35] LABS: ABNORMAL IP MESSAGE 1; BASOPHIL # 0.2 10^3/ul (0.0-0.1); BASOPHILS % 0.6 % (0.0-2.0); EOSINOPHILS # 0.3 10^3/ul (0.0-0.5); EOSINOPHILS % 1.1 % (0.0-7.0); HEMATOCRIT 36.7 % (42.0-52.0); HEMOGLOBIN 11.1 g/dl (14.0-18.0); LYMPHOCYTES # 1.3 10^3/ul (0.8-2.9); LYMPHOCYTES % 5.7 % (15.0-51.0); MEAN CORPUSCULAR HEMOGLOBIN 29.1 pg (29.0-33.0); MEAN CORPUSCULAR HGB CONC 30.2 g/dl (32.0-37.0); MEAN CORPUSCULAR VOLUME 96.1 fl (82.0-101.0); MEAN PLATELET VOLUME 10.4 fl (7.4-10.4); MONOCYTE # 1.2 10^3/ul (0.3-0.9); MONOCYTES % 5.2 % (0.0-11.0); NEUTROPHIL # 20.3 10^3/ul (1.6-7.5); NEUTROPHILS % 86.7 % (39.0-77.0); PLATELET COUNT 575 10^3/UL (140-415); POSITIVE DIFF @See below; RED BLOOD COUNT 3.82 10^6/ul (4.70-6.10); RED CELL DISTRIBUTION WIDTH 19.3 % (11.5-14.5)
[2019-01-14 05:35] LABS: WHITE BLOOD COUNT 23.4 10^3/ul (4.8-10.8)
[2019-01-14 06:04] LABS: ANION GAP 16 (5-13); BLOOD UREA NITROGEN 38 mg/dl (7-20); CALCIUM 11.3 mg/dl (8.4-10.2); CARBON DIOXIDE 28 mmol/L (21-31); CHLORIDE 101 mmol/L (97-110); CREATININE 7.15 mg/dl (0.61-1.24); Estimated GFR 8 mL/min (>60); GLUCOSE 310 mg/dl (70-220); POTASSIUM 4.3 mmol/L (3.5-5.1); SODIUM 145 mmol/L (135-144)
[2019-01-14] MEDS ORDERED: INSULIN GLARGINE [LANTus] (100 UNITS/ML) SYG SC (08:00)
[2019-01-14] MEDS: ALBUMIN HUMAN 25% 100 ML IV (08:36)
[2019-01-14] MEDS: CLOPIDOGREL 75 MG TAB GTB (09:00)
[2019-01-14] MEDS: DOXAZOSIN 2 MG TAB NGT (09:00)
[2019-01-14] MEDS: BACLOFEN 10 MG TAB GTB ×2 (09:00→20:52)
[2019-01-14] MEDS: POLYETHYLENE GLYCOL 17 GM PACKET PEG (09:00)
[2019-01-14] MEDS: ASPIRIN 81 MG TAB PO (09:00)
[2019-01-14] MEDS: DOCUSATE SODIUM 10 MG/ML (10ML CUP) PEG ×2 (09:00→20:52)
[2019-01-14] MEDS: MULTIVIT/CA CARB/B CMPLX/FA TAB GTB (09:00)
[2019-01-14] MEDS: LACTOBACILLUS RHAMNOSUS CAP GTB ×3 (09:00→20:52)
[2019-01-14] MEDS: LOSARTAN 25 MG TAB PO (09:00)
[2019-01-14] MEDS: MUPIROCIN 2% 22 GM OINT TOP ×2 (09:01→20:53)
[2019-01-14] MEDS: BALSAM PERU/CASTOR OIL 60 GM TUBE TOP (09:01)
[2019-01-14] MEDS: INSULIN GLARGINE [LANTus] (100 UNITS/ML) SYG SC (09:08)
[2019-01-14] MEDS: BUDESONIDE (NEB) 0.5MG/2ML AMP HHN ×2 (09:53→19:30)
[2019-01-14] MEDS: MIDAZOLAM (DRIP) 50 mg/50 mL 50 ML IV (10:31)
[2019-01-14] MEDS: HEPARIN 1000 UNITS/ML 10 ML INJ CATHETER (11:56)
[2019-01-14] MEDS ORDERED: VANCOMYCIN IV PER PHARMACY XX (13:00)
[2019-01-14] MEDS: MEROPENEM 500MG/50 ML (PMX) 50 ML IVPB ×2 (13:43→21:09)
[2019-01-14] MEDS ORDERED: MIDAZOLAM 1 MG/ML 2 ML INJ (14:00)
[2019-01-14] MEDS ORDERED: PHENYLephrine (100 MCG/ML) 10ML SYG (14:00)
[2019-01-14] MEDS ORDERED: ETOMIDATE 20 MG INJ (14:00)
[2019-01-14] MEDS ORDERED: FENTAnyl 50 MCG/ML VIAL (14:01)
[2019-01-14] MEDS ORDERED: CEFAZOLIN 1 GM INJ (14:02)
[2019-01-14] MEDS: VANCOMYCIN 1.5 GM/NS 250 ML 250 ML IVPB (16:39)
[2019-01-14] MEDS: EPOETIN ALFA-EPBX (ESRD) 10,000 UNIT/ML VIAL SC (17:00)
[2019-01-14] MEDS: NORepinephrine 8MG/250 ML (PMX 250 ML IV (20:49)
[2019-01-14] MEDS: QUETIAPINE 25 MG TAB GTB (20:52)
[2019-01-14] MEDS: ATORVASTATIN 40 MG TAB NGT (20:52)
[2019-01-14] MEDS: GABAPENTIN 100 MG CAP PO (20:53)
[2019-01-15] MEDS: METOCLOPRAMIDE 10 MG INJ IV ×4 (00:24→17:38)
[2019-01-15 00:27] LABS: TYPE AND SCREEN 1 1
[2019-01-15] MEDS: INSULIN ASPART [NOVOLOG] 3 ML PEN SC ×6 (00:30→20:58)
[2019-01-15] MEDS: IPRATROPIUM (HFA) 12.9 GM INHALER INH ×4 (03:13→20:17)
[2019-01-15] MEDS: ALBUTEROL HFA 8 GM INHALER INH ×4 (03:14→20:17)
[2019-01-15 05:24] LABS: ABNORMAL IP MESSAGE 1; HEMATOCRIT 39.8 % (42.0-52.0); HEMOGLOBIN 11.8 g/dl (14.0-18.0); MEAN CORPUSCULAR HEMOGLOBIN 28.8 pg (29.0-33.0); MEAN CORPUSCULAR HGB CONC 29.6 g/dl (32.0-37.0); MEAN CORPUSCULAR VOLUME 97.1 fl (82.0-101.0); MEAN PLATELET VOLUME 10.4 fl (7.4-10.4); PLATELET COUNT 692 10^3/UL (140-415); POSITIVE DIFF @See below; RED CELL DISTRIBUTION WIDTH 19.2 % (11.5-14.5)
[2019-01-15 05:24] LABS: WHITE BLOOD COUNT 26.7 10^3/ul (4.8-10.8)
[2019-01-15] MEDS: LANSOPRAZOLE 30 MG CAP GTB ×2 (05:25→18:12)
[2019-01-15 05:40] LABS: ADD MAN DIFF? YES; PATH REVIEW? YES
[2019-01-15 05:51] LABS: ANION GAP 23 (5-13); Estimated GFR 10 mL/min (>60)
[2019-01-15 05:54] LABS: BLOOD UREA NITROGEN 37 mg/dl (7-20); CARBON DIOXIDE 26 mmol/L (21-31); CHLORIDE 101 mmol/L (97-110); CREATININE 6.03 mg/dl (0.61-1.24); GLUCOSE 371 mg/dl (70-220); PHOSPHORUS 7.9 mg/dl (2.5-4.9); POTASSIUM 5.8 mmol/L (3.5-5.1); SODIUM 150 mmol/L (135-144)
[2019-01-15 08:26] LABS: ANISOCYTOSIS 1+ (0-0); BAND NEUTROPHILS #M 0.5 10^3/ul (0.0-0.6); BAND NEUTROPHILS % (M) 2 % (0-4); BASOPHIL #M 0.2 10^3/ul (0.0-0.0); BASOPHILS % (M) 1 % (0-2); GIANT THROMBO% (M) 1 % (0-0); LYMPHOCYTES % (M) 4 % (15-51); MONOCYTE #M 0.8 10^3/ul (0.3-0.9); MONOCYTES % (M) 3 % (0-11); PLATELET ESTIMATE INCREASED; POIKILOCYTOSIS 1+ (0-0); REACTIVE LYMPHOCYTES #M 0.2 10^3/ul (0.0-0.0); REACTIVE LYMPHOCYTES% (M) 1 % (0-0); SEG NEUT #M 23.9 10^3/ul (1.6-7.5); SEGMENTED NEUTROPHILS (M) % 89 % (39-77); SMUDGE%M 2 % (0-0)
[2019-01-15] MEDS: LOSARTAN 25 MG TAB PO (09:00)
[2019-01-15] MEDS: DOXAZOSIN 2 MG TAB NGT (09:00)
[2019-01-15] MEDS: MULTIVIT/CA CARB/B CMPLX/FA TAB GTB (09:18)
[2019-01-15] MEDS: CLOPIDOGREL 75 MG TAB GTB (09:18)
[2019-01-15] MEDS: ASPIRIN 81 MG TAB PO (09:18)
[2019-01-15] MEDS: LACTOBACILLUS RHAMNOSUS CAP GTB ×3 (09:18→20:55)
[2019-01-15] MEDS: DOCUSATE SODIUM 10 MG/ML (10ML CUP) PEG ×2 (09:18→20:56)
[2019-01-15] MEDS: BACLOFEN 10 MG TAB GTB ×2 (09:18→20:56)
[2019-01-15] MEDS: POLYETHYLENE GLYCOL 17 GM PACKET PEG (09:18)
[2019-01-15] MEDS: ACETAMINOPHEN 650MG/20.3ML CUP PEG (09:19)
[2019-01-15] MEDS: BALSAM PERU/CASTOR OIL 60 GM TUBE TOP (09:26)
[2019-01-15] MEDS: MEROPENEM 500MG/50 ML (PMX) 50 ML IVPB (09:26)
[2019-01-15] MEDS: MUPIROCIN 2% 22 GM OINT TOP ×2 (09:27→20:56)
[2019-01-15] MEDS ORDERED: morphine 2 MG INJ IV (09:30)
[2019-01-15] MEDS ORDERED: NA POLYST SULFON 15 GM/60 ML BTL GTB (10:00)
[2019-01-15] MEDS: INSULIN GLARGINE [LANTus] (100 UNITS/ML) SYG SC ×2 (10:23→18:12)
[2019-01-15] MEDS: BUDESONIDE (NEB) 0.5MG/2ML AMP HHN ×2 (10:26→20:17)
[2019-01-15] MEDS ORDERED: AMIKACIN IV PER PHARMACY XX (11:00)
[2019-01-15] MEDS: metroNIDAZOLE 250 MG TAB GTB ×2 (14:03→17:38)
[2019-01-15] MEDS: NA POLYST SULFON 15 GM/60 ML BTL PR (14:04)
[2019-01-15] MEDS: AMIKACIN 450 MG in SOD CHLORIDE 0.9% 100 ML IVPB (14:46)
[2019-01-15] MEDS: NORepinephrine 8MG/250 ML (PMX 250 ML IV (15:38)
[2019-01-15] MEDS: GABAPENTIN 100 MG CAP PO (20:55)
[2019-01-15] MEDS: QUETIAPINE 25 MG TAB GTB (20:55)
[2019-01-15] MEDS: ATORVASTATIN 40 MG TAB NGT (20:55)
[2019-01-15] MEDS: ALTEPLASE (CATHFLO) 2 MG INJ CATHETER ×2 (21:51→22:52)
[2019-01-15 22:00] LABS: ANION GAP 24 (5-13); BLOOD UREA NITROGEN 59 mg/dl (7-20); CARBON DIOXIDE 22 mmol/L (21-31); CHLORIDE 103 mmol/L (97-110); CREATININE 7.58 mg/dl (0.61-1.24); Estimated GFR 7 mL/min (>60); POTASSIUM 4.7 mmol/L (3.5-5.1); SODIUM 149 mmol/L (135-144)
[2019-01-15 22:03] LABS: GLUCOSE 431 mg/dl (70-220)
[2019-01-15] MEDS ORDERED: DEXTROSE 50% 50 ML SYRINGE IV ×2 (22:30)
[2019-01-15] MEDS: ACCU-CHEK XX ×2 (23:20→23:21)
[2019-01-15] MEDS: INSULIN HUMAN REGULAR 100 UNIT in SOD CHLORIDE 0.9% 99 ML IV (23:20)
[2019-01-16] MEDS: ACCU-CHEK XX ×13 (00:10→11:38)
[2019-01-16] MEDS: metroNIDAZOLE 250 MG TAB GTB ×3 (00:16→11:38)
[2019-01-16] MEDS: METOCLOPRAMIDE 10 MG INJ IV ×3 (00:16→11:38)
[2019-01-16] MEDS: ALBUTEROL HFA 8 GM INHALER INH ×2 (02:05→07:16)
[2019-01-16] MEDS: IPRATROPIUM (HFA) 12.9 GM INHALER INH ×2 (02:05→07:16)
[2019-01-16] MEDS: NORepinephrine 8MG/250 ML (PMX 250 ML IV ×2 (02:42→06:25)
[2019-01-16 04:45] LABS: AADO2 Arterial 394.7 mmHg (7.0-24.0); Arterial Base Excess -1.8 mmol/L (-3.0-3); Arterial Blood Gas Oxygen Sat 82.5 mmHG (95.0-98.0); Arterial COHb 0.5 % (0.0-3.0); Arterial Fraction of Oxyhgb 81.9 % (93.0-99.0); Arterial HCO3 24.2 mmol/L (22.0-26.0); Arterial MetHb 0.2 % (0.0-1.5); Arterial pCO2 45.7 mmhg (35-45); MODE VENT - AC; Site Right Brachial
[2019-01-16] MEDS: PHENYLephrine 40 MG in DEXTROSE 5% 246 ML IV ×3 (05:00→12:03)
[2019-01-16] MEDS: SOD CHLORIDE 0.9% 500 ML IV (05:01)
[2019-01-16 05:15] LABS: ADD MAN DIFF? NO
[2019-01-16 05:17] LABS: WHITE BLOOD COUNT 28.1 10^3/ul (4.8-10.8)
[2019-01-16 05:17] LABS: ABNORMAL IP MESSAGE 1; BASOPHIL # 0.3 10^3/ul (0.0-0.1); EOSINOPHILS # 0.3 10^3/ul (0.0-0.5); EOSINOPHILS % 1.1 % (0.0-7.0); HEMOGLOBIN 11.3 g/dl (14.0-18.0); LYMPHOCYTES % 10.6 % (15.0-51.0); MEAN CORPUSCULAR HGB CONC 29.7 g/dl (32.0-37.0); MEAN CORPUSCULAR VOLUME 97.7 fl (82.0-101.0); MEAN PLATELET VOLUME 10.2 fl (7.4-10.4); MONOCYTE # 1.4 10^3/ul (0.3-0.9); MONOCYTES % 4.9 % (0.0-11.0); NEUTROPHIL # 22.4 10^3/ul (1.6-7.5); NEUTROPHILS % 79.6 % (39.0-77.0); NUCLEATED RED BLOOD CELLS # 0.1 10^3/ul (0.0-0.0); NUCLEATED RED BLOOD CELLS% 0.2 /100WBC (0.0-0.0); PLATELET COUNT 709 10^3/UL (140-415); POSITIVE DIFF @See below; RED BLOOD COUNT 3.89 10^6/ul (4.70-6.10); RED CELL DISTRIBUTION WIDTH 18.9 % (11.5-14.5)
[2019-01-16] MEDS: EPINEPHrine 4 MG in DEXTROSE 5% 246 ML IV ×2 (05:30→11:03)
[2019-01-16 05:55] LABS: VANCOMYCIN,RANDOM 24.3 ug/ml
[2019-01-16 06:00] LABS: ANION GAP 22 (5-13); BLOOD UREA NITROGEN 65 mg/dl (7-20); CALCIUM 11.3 mg/dl (8.4-10.2); CARBON DIOXIDE 23 mmol/L (21-31); CHLORIDE 109 mmol/L (97-110); Estimated GFR 7 mL/min (>60); GLUCOSE 126 mg/dl (70-220); PHOSPHORUS 7.5 mg/dl (2.5-4.9); POTASSIUM 4.2 mmol/L (3.5-5.1); SODIUM 154 mmol/L (135-144)
[2019-01-16 06:07] LABS: TROPONIN-I 0.079 ng/ml (0.000-0.120)
[2019-01-16] MEDS: LANSOPRAZOLE 30 MG CAP GTB (06:12)
[2019-01-16] MEDS ORDERED: INSULIN GLARGINE [LANTus] (100 UNITS/ML) SYG SC (08:00)
[2019-01-16] MEDS: BUDESONIDE (NEB) 0.5MG/2ML AMP HHN (08:26)
[2019-01-16] MEDS: DOXAZOSIN 2 MG TAB NGT (09:00)
[2019-01-16] MEDS: DOCUSATE SODIUM 10 MG/ML (10ML CUP) PEG (09:56)
[2019-01-16] MEDS: MULTIVIT/CA CARB/B CMPLX/FA TAB GTB (09:57)
[2019-01-16] MEDS: ASPIRIN 81 MG TAB PO (09:57)
[2019-01-16] MEDS: BACLOFEN 10 MG TAB GTB (09:57)
[2019-01-16] MEDS: CLOPIDOGREL 75 MG TAB GTB (09:57)
[2019-01-16] MEDS: LACTOBACILLUS RHAMNOSUS CAP GTB (09:57)
[2019-01-16] MEDS: BALSAM PERU/CASTOR OIL 60 GM TUBE TOP (09:59)
[2019-01-16] MEDS: MUPIROCIN 2% 22 GM OINT TOP (09:59)
[2019-01-16 10:14] LABS: HEPATITIS B SURFACE ANTIGEN NEGATIVE (NEGATIVE)
[2019-01-16] MEDS ORDERED: AMIKACIN 300 MG in SOD CHLORIDE 0.9% 100 ML IVPB (12:00)
[2019-01-16] MEDS: morphine (DRIP) 100 MG/100 ML 100 ML IV (13:16)
[2019-01-16] MEDS ORDERED: CA CHLORIDE 10% 10 ML SYRINGE (15:00)
[2019-01-16] MEDS ORDERED: EPINEPHrine 0.1 MG/ML SYG (15:00)
[2019-01-16] MEDS ORDERED: LIDOCAINE 2 GM/D5W 500 ML BAG (15:00)
[2019-01-17] MEDS ORDERED: VANCOMYCIN 1 GM 250 ML IVPB (11:00)
== END 2019-01-16 15:15 | disposition expired | DRG 4 ==
LOC: ICU 12-19 07:59 → 6WM 12-25 06:00 → ICU 12-26 23:31 → E/R 10:08 → 6WM 12-20 15:54 → ICU 13:16
PROC: 0B110F4 Bypass Trachea to Cutaneous with Tracheostomy Device, Open Approach (ICD-10-PCS; principal; 2018-12-22 14:45)
PROC: 5A1955Z Respiratory Ventilation, Greater than 96 Consecutive Hours (ICD-10-PCS; 2018-12-22 14:45)
PROC: 02HV33Z Insertion of Infusion Device into Superior Vena Cava, Percutaneous Approach (ICD-10-PCS; 2018-12-22 14:45)
PROC: 0DB68ZX Excision of Stomach, Via Natural or Artificial Opening Endoscopic, Diagnostic (ICD-10-PCS; 2018-12-22 14:45)
PROC: 0DBK8ZX Excision of Ascending Colon, Via Natural or Artificial Opening Endoscopic, Diagnostic (ICD-10-PCS; 2018-12-22 14:45)
PROC: 0DBN8ZX Excision of Sigmoid Colon, Via Natural or Artificial Opening Endoscopic, Diagnostic (ICD-10-PCS; 2018-12-22 14:45)
PROC: 0DBH8ZX Excision of Cecum, Via Natural or Artificial Opening Endoscopic, Diagnostic (ICD-10-PCS; 2018-12-22 14:45)
PROC: 0BH17EZ Insertion of Endotracheal Airway into Trachea, Via Natural or Artificial Opening (ICD-10-PCS; 2018-12-22 14:45)
PROC: 5A1955Z Respiratory Ventilation, Greater than 96 Consecutive Hours (ICD-10-PCS; 2018-12-22 14:45)
PROC: 5A1D70Z Performance of Urinary Filtration, Intermittent, Less than 6 Hours Per Day (ICD-10-PCS; 2018-12-22 14:45)
PROC: 0BH18EZ Insertion of Endotracheal Airway into Trachea, Via Natural or Artificial Opening Endoscopic (ICD-10-PCS; 2018-12-22 14:45)
PROC: 0DH63UZ Insertion of Feeding Device into Stomach, Percutaneous Approach (ICD-10-PCS; 2018-12-22 14:45)
PROC: 30233N1 Transfusion of Nonautologous Red Blood Cells into Peripheral Vein, Percutaneous Approach (ICD-10-PCS; 2018-12-22 14:45)
PROC: 30233R1 Transfusion of Nonautologous Platelets into Peripheral Vein, Percutaneous Approach (ICD-10-PCS; 2018-12-22 14:45)
PROC: 5A12012 Performance of Cardiac Output, Single, Manual (ICD-10-PCS; 2018-12-22 14:45)
DX: G92 Toxic encephalopathy (principal); N18.6 End stage renal disease; A41.9 Sepsis, unspecified organism; R65.21 Severe sepsis with septic shock; J96.01 Acute respiratory failure with hypoxia; J69.0 Pneumonitis due to inhalation of food and vomit; J15.6 Pneumonia due to other Gram-negative bacteria; I63.9 Cerebral infarction, unspecified; I16.1 Hypertensive emergency; N17.9 Acute kidney failure, unspecified; I12.0 Hypertensive chronic kidney disease with stage 5 chronic kidney disease or end stage renal disease; I69.354 Hemiplegia and hemiparesis following cerebral infarction affecting left non-dominant side; G93.49 Other encephalopathy; F05 Delirium due to known physiological condition; Z43.1 Encounter for attention to gastrostomy; I69.998 Other sequelae following unspecified cerebrovascular disease; G40.909 Epilepsy, unspecified, not intractable, without status epilepticus; I95.9 Hypotension, unspecified; R13.10 Dysphagia, unspecified; I25.10 Atherosclerotic heart disease of native coronary artery without angina pectoris; E78.5 Hyperlipidemia, unspecified; N40.0 Benign prostatic hyperplasia without lower urinary tract symptoms; I46.9 Cardiac arrest, cause unspecified; D63.1 Anemia in chronic kidney disease; K29.70 Gastritis, unspecified, without bleeding; K29.80 Duodenitis without bleeding; K20.9 Esophagitis, unspecified; K64.8 Other hemorrhoids; E11.22 Type 2 diabetes mellitus with diabetic chronic kidney disease; I25.2 Old myocardial infarction; R19.7 Diarrhea, unspecified; J32.9 Chronic sinusitis, unspecified; H70.93 Unspecified mastoiditis, bilateral; N47.2 Paraphimosis; I65.23 Occlusion and stenosis of bilateral carotid arteries; R29.732 NIHSS score 32; Z66 Do not resuscitate; Z22.322 Carrier or suspected carrier of Methicillin resistant Staphylococcus aureus; Z99.2 Dependence on renal dialysis; Z95.1 Presence of aortocoronary bypass graft; Z95.5 Presence of coronary angioplasty implant and graft
CPT/HCPCS: 31500; 36430; 36569; 36600; 70450; 70551; 71045; 74018; 74176; 76705; 76937; 80048; 80053; 80061; 80069; 80202; 80307; 81001; 82728; 82803; 82962; 83036; 83540; 83605; 83735; 84100; 84443; 84484; 85014; 85018; 85025; 85045; 85610; 86644; 86850; 86900; 86901; 86920; 86945; 87040-91; 87070; 87081; 87086; 87275; 87276; 87279; 87280; 87340; 88305; 89220; 90935; 92526; 92610; 92950; 93005; 93306; 93880; 94002; 94003; 94640; 94664; 94668; 94770; 95819; 96372; 97110; 97163; 97167; 97530; 99285-25; J2001